=== PATIENT | male | born 1965 | race Caucasian/White ===

== ENCOUNTER 2021-10-28 16:55 | Outpatient (REF) | payer OTHER, SELFPAY ==
[2021-10-28 17:07] LABS: MANUAL DIFF FLAG NO
[2021-10-28 17:44] LABS: Basophils Percent Auto 0.4 % (0-2); Eosinophils Absolute Auto 0.1 X10*3/uL (0.0-0.4); Eosinophils Percent Auto 1.3 % (0-4); Hematocrit 38.9 % (42.0-52.0); Hemoglobin 13.2 g/dl (14.0-18.0); Imm Gran Abs Auto 0.03 X10*3/uL (0.00-0.03); Imm Gran Pct Auto 0.4 % (0.0-0.4); Immature Retic Fraction 8.5 % (2.3-13.4); Lymphocytes Absolute Auto 1.4 X10*3/uL (1.2-4.9); Lymphocytes Percent Auto 18.3 % (20-40); Mean Corpuscular HGB Conc 33.9 g/dl (31.0-36.0); Mean Corpuscular Hemoglobin 30.1 pg (27.0-33.0); Mean Corpuscular Volume 88.6 fL (80.0-98.0); Mean Platelet Volume 8.9 fL (9.4-12.4); Monocytes Absolute Auto 0.6 X10*3/uL (0.1-1.2); Monocytes Percent Auto 8.1 % (2-11); Neutrophils Absolute Auto 5.4 x10*3/uL (2.0-8.3); Neutrophils Percent Auto 71.5 % (45-73); Platelet Count 347 X10*3/uL (160-400); Red Blood Count 4.39 X10*6/uL (4.60-5.80); Red Cell Distribution Width 12.7 % (11.0-16.0); Retic HGB Equivalent 34.4 pg (30.0-35.0); Reticulocyte Percent 1.3 % (0.5-1.8); Reticulocytes Absolute 0.057 X10*6/uL (0.026-0.095); White Blood Count 7.6 X10*3/uL (4.8-10.8)
[2021-10-28 17:47] LABS: Appearance Urine CLEAR; Color Urine YELLOW; Glucose Urine UA NEG (NEG); Leukocyte Esterase Urine NEG (NEG); Nitrite Urine NEG (NEG); PH 5.5 (5.0-8.0); Specific Gravity - Urine >= 1.030 (1.005-1.025); Urine Blood NEG (NEG); Urine Ketones NEG (NEG); Urine Protein TRACE MG/DL (NEG-TRACE)
[2021-10-28 18:16] LABS: Alanine Aminotransferase 41 U/L (0-40); Albumin Level 4.4 g/dL (3.5-5.0); Alkaline Phosphatase 83 U/L (39-117); Anion Gap 12 (12-20); Aspartate Amino Transferase 29 U/L (5-37); Bilirubin Total 0.4 mg/dL (0.0-1.0); Blood Urea Nitrogen 14 mg/dL (9-16); Calcium 9.2 mg/dL (8.4-10.2); Carbon Dioxide 26 mmol/L (22-29); Chloride 106 mmol/L (96-108); Cholesterol 301 mg/dL; Estimated Glomerular Filt Rate > 60; Glucose Random 100 mg/dL (60-115); HDL Cholesterol 50 mg/dL; Iron 95 mcg/dL (45-160); LDL Cholesterol Calculated 211 mg/dl; Percent Iron Saturation 24 % (15-50); Potassium 4.5 mmol/L (3.3-5.1); Sodium 139 mmol/L (135-145); Total Iron Binding Capacity 396 mcg/dL (228-428); Total Protein 7.3 g/dL (6.5-8.0); Triglycerides 201 mg/dL; Unsaturated Iron Binding 301 ug/dL
[2021-10-28 18:24] LABS: Erythrocyte Sedimentation Rate 15 MM/HR (0-15)
[2021-10-28 18:38] LABS: Ferritin 111 ng/mL (20-250); Free T4 (Free Thyroxine) 0.94 ng/dL (0.71-1.85); Prostate Specific Antigen Scr 1.26 ng/mL (<0.05-4.0); Thyroid Stimulating Hormone 0.51 uIU/mL (0.32-4.0); Vitamin D 25-OH Total 31.4 ng/mL (>30)
[2021-10-28 18:51] LABS: Folate > 20.0 ng/mL (> or = 4.0); Vitamin B12 570 pg/mL (200-900)
[2021-10-28 21:17] LABS: Amorphous Sediment Urine 4+ /LPF; RBC Urine 0-2 /HPF (0); Squamous Epithelial Cell Urine TRACE /LPF; WBC Urine 0-2 /HPF (0-4)
== END 2021-10-28 16:56 | disposition home or self-care (01) ==
LOC: HO.LAB 16:55
PROVIDERS: PCP Internal Medicine; Visit Provider Internal Medicine
DX: Z12.5 Encounter for screening for malignant neoplasm of prostate (principal); F33.9 Major depressive disorder, recurrent, unspecified; E78.00 Pure hypercholesterolemia, unspecified
CPT/HCPCS: 36415; 80053; 80061; 81001; 82306; 82607; 82728; 82746; 83540; 84153; 84439; 84443; 85025; 85045; 85652

== ENCOUNTER 2021-12-21 10:10 | Outpatient (REF) | payer OTHER, SELFPAY ==
--- NOTE | ~2021-12-21 | US_ITS ---
EXAMINATION: US ABDOMEN COMPLETE CLINICAL INFORMATION: Elevated liver function tests. COMPARISON: CT abdomen with contrast. TECHNIQUE: Real-time imaging of the abdominal viscera. FINDINGS: PANCREAS: Normal. ABDOMINAL AORTA: The proximal, mid, and distal segments are normal in caliber. INFERIOR VENA CAVA: Not well seen. LIVER: The liver is normal in size. The liver contour is normal. There is diffuse increased liver parenchymal echogenicity, consistent with hepatic steatosis. There is a 0.8 cm hypoechoic lesion in the left lobe. This is not necessarily cystic. There is no intrahepatic biliary duct dilatation seen. GALLBLADDER: Normal. The gallbladder is physiologically distended without evidence of stones, sludge, polyps, wall thickening or pericholecystic fluid. COMMON BILE DUCT: Normal in caliber measuring 0.3 cm in diameter. RIGHT KIDNEY: Normal. No hydronephrosis. No renal calculi or focal parenchymal lesions. The kidney measures 10.9 cm in maximum dimension. LEFT KIDNEY: Normal. No hydronephrosis. No renal calculi or focal parenchymal lesions. The kidney measures 10.3 cm in maximum dimension. SPLEEN: Normal. The spleen measures 10.5 cm in maximum dimension. FREE FLUID: None. US/US abdomen complete IMPRESSION: Hepatic steatosis. 0.8 cm hypoechoic left lobe liver lesion. This does not show characteristics of a cyst. If clinically indicated, nonemergent dynamic liver MRI could be performed to evaluate.
== END 2021-12-21 10:11 | disposition home or self-care (01) ==
LOC: HO.US 10:10
PROVIDERS: Visit Provider Internal Medicine
DX: R10.11 Right upper quadrant pain (principal); R79.89 Other specified abnormal findings of blood chemistry
CPT/HCPCS: 76700

== ENCOUNTER 2022-01-01 20:07 | Emergency (ER) | payer OTHER, SELFPAY ==
[2022-01-01 22:23] VITALS: BP 134/82; PULSE 76; RESP 16; TEMP 37.4; O2SAT 100; BMI 29.5
[2022-01-01 23:43] LABS: Hematocrit 38.6 % (42.0-52.0); Hemoglobin 12.8 g/dl (14.0-18.0); Mean Corpuscular HGB Conc 33.2 g/dl (31.0-36.0); Mean Corpuscular Hemoglobin 29.4 pg (27.0-33.0); Mean Corpuscular Volume 88.7 fL (80.0-98.0); Mean Platelet Volume 8.6 fL (9.4-12.4); Platelet Count 300 X10*3/uL (160-400); Red Blood Count 4.35 X10*6/uL (4.60-5.80); Red Cell Distribution Width 12.6 % (11.0-16.0); White Blood Count 13.3 X10*3/uL (4.8-10.8)
[2022-01-02 00:02] LABS: Alanine Aminotransferase 39 U/L (0-40); Albumin Level 4.5 g/dL (3.5-5.0); Alkaline Phosphatase 100 U/L (39-117); Anion Gap 16 (12-20); Aspartate Amino Transferase 26 U/L (5-37); Bilirubin Total 0.4 mg/dL (0.0-1.0); Blood Urea Nitrogen 13 mg/dL (9-16); Calcium 9.5 mg/dL (8.4-10.2); Carbon Dioxide 27 mmol/L (22-29); Chloride 102 mmol/L (96-108); Creatinine Clr Calc Pharmacy 99.5; Estimated Glomerular Filt Rate > 60; Glucose Random 96 mg/dL (60-115); Sodium 140 mmol/L (135-145); Total Protein 7.4 g/dL (6.5-8.0)
--- NOTE | 2022-01-02 01:37 | ED_ITS ---
HPI - General Adult General Chief complaint: General Medical Stated complaint: cyst Time Seen by Provider: 01/02/22 01:31 Source: patient Mode of arrival: ambulatory Limitations: no limitations History of Present Illness HPI narrative: Patient comes to the emergency room complaining of an abscess on the left buttoc ks. Patient states it started approximately 1 week ago. Patient tried using warm compresses, there has not been any drainage, the abscess keeps getting bigger, more painful. Patient denies fever or chills. Patient denies any pain with bowel movements Related Data Home Medications Medication Instructions Recorded Confirmed ascorbate calcium (vitamin C) 500 500 mg PO DAILY 10/27/21 10/27/21 mg tablet fluoxetine 60 mg tablet 60 mg PO DAILY 10/27/21 10/27/21 magnesium 250 mg tablet 250 mg PO DAILY 10/27/21 10/27/21 multivitamin 1 tab PO DAILY 10/27/21 10/27/21 vitamin B complex (B 1 tab PO DAILY 10/27/21 10/27/21 Complex-Vitamin B12 tablet) Previous Rx's Medication Instructions Recorded ibuprofen 600 mg tablet 600 mg PO TID PRN pain #20 tabs 01/02/22 sulfamethoxazole 800 1 tab PO BID #14 tabs 01/02/22 mg-trimethoprim 160 mg tablet (Bactrim DS) Allergies Allergy/AdvReac Type Severity Reaction Status Date / Time No Known Allergies Allergy Mild NKA Verified 10/27/21 16:12 Review of Systems Review of Systems: Constitutional : No Weight loss, No Fever, No Chills, No Night Sweats, No Fatigue, No Malaise ENT/Mouth : No Hearing loss, No Ear Pain, No Nasal Congestion, No Sinus Pain, No Hoarseness, No sore throat, No Rhinorrhea, No Swallowing Difficulty Eyes: No Eye Pain, No Swelling, No Redness, No Foreign Body, No Discharge, No Vision Changes Cardiovascular : No Chest Pain, No SOB, No Dyspnea on Exertion, No Orthopnea, No Edema, No Palpitations Respiratory : No Cough, No Sputum, No Wheezing, No Smoke Exposure, No Dyspnea Gastrointestinal : No Nausea, No Vomiting, No Diarrhea, No Constipation, No abdominal Pain, No Hematochezia, No Melena Genitourinary : no irregular bleeding, No Dysuria, No Urinary Frequency, No Hematuria, No Urinary Incontinence, No Urgency, No Flank Pain, No Urinary Flow Changes, No Hesitancy Musculoskeletal : No joint pain, No Myalgias, No Joint Swelling Skin : Complaining of an abscess in the left buttocks Neuro : No Weakness, No Numbness, No Paresthesias, No Loss of Consciousness, No Dizziness, No Headache Psych : No Anxiety/Panic, No Depression, No SI/HI/AH/VH, No Social Issues, Heme/Lymph: No Bruising, No Bleeding,No Lymphadenopathy Endocrine : No Polyuria, No Polydipsia, No Temperature Intolerance COUNT INCLUDES THE [facility] Past Medical History Medical History Alcohol abuse Hypercholesterolemia Obsessive compulsive disorder Psoriasis Recurrent major depression Family History Family History (Updated 10/27/21 @ 16:59 by Patsy Ward MD) Mother Renal cancer Brother Testicular cancer Paternal Grandmother Pancreatic cancer Maternal Grandmother Breast cancer Paternal Aunt Paranoid schizophrenia Social History Social History (Updated 10/27/21 @ 17:00 by Patsy Ward MD) Housing: House Alcohol intake: current Patient Tobacco Use Status: Former Tobacco user Years Smoked: quit 2013 Second Hand Smoke Exposure: No Advance Directives: No Advance Directives Information Provided: Yes service: No Current occupational status: unemployed Cognitive needs: No Hearing needs: No Vision needs: Yes Physical Exam ED Vital Signs: Vital Signs - 24 hr 01/01/22 22:23 Temperature 99.3 F Pulse Rate 76 Respiratory Rate 16 Blood Pressure 134/82 Pulse Oximetry 100 Oxygen Delivery Method Room Air BMI result Body Mass Index 29.5 Const Other: Appearance: Alert. Oriented X3. No acute distress. Eyes: Pupils equal, round and reactive to light. ENT: Pharynx normal. Neck: Normal inspection. Neck supple. No lymph nodes noted. No crepitus CVS: Normal heart rate and rhythm. Pulses normal. Normal S1 and S2 Respiratory: No respiratory distress. Breath sounds normal. No Wheezing. No rales Abdomen: Soft and nontender. No rigidity. No distention. Skin: Skin warm and dry on the left buttocks, there is a 3 cm x 3 cm abscess. It is approximately 2 in away from the anus. Perirectal abscess not suspect Extremities: No lower extremity edema. No Lacerations. No Rash Neuro: Oriented X 3. No motor deficit. No sensory deficit. Moving all extremities. No slurred speech. CN 2 through 12 grossly intact Psych: calm, cooperative, normal affect Course Course Course Narrative: Left buttocks abscess was drained, small amount of pus was extracted, approx imately 4 mL Patient given the 1st dose of Bactrim in the ED Patient instructed to follow-up with his primary care physician or return in 24- 48 hours for wound check Procedures Abscess I/D Site: other (Left buttocks) Side (if applicable): left Local Anesthetic: lidocaine 1% Amount of anesthesia used (mL): 4 Technique: incised with blade Amount of fluid expressed (mL): 4 Sent for culture/gram staining?: No Irrigation: No Packing used?: iodoform Medical Decision Making Lab Data Result diagrams: 01/01/22 23:34 01/01/22 23:34 Labs: Lab Results 01/01/22 01/01/22 Range/Units 23:34 23:34 WBC 13.3 H (4.8-10.8) X10*3/uL RBC 4.35 L (4.60-5.80) X10*6/uL Hgb 12.8 L (14.0-18.0) g/dl Hct 38.6 L (42.0-52.0) % MCV 88.7 (80.0-98.0) fL MCH 29.4 (27.0-33.0) pg MCHC 33.2 (31.0-36.0) g/dl RDW 12.6 (11.0-16.0) % Plt Count 300 (160-400) X10*3/uL MPV 8.6 L (9.4-12.4) fL Absolute Nucleated RBC 0.000 (0.0-0.012) X10*3/uL Nucleated RBC % (auto) 0.0 (0.0-0.2) /100WBC Sodium 140 (135-145) mmol/L Potassium 5.0 (3.3-5.1) mmol/L Chloride 102 (96-108) mmol/L Carbon Dioxide 27 (22-29) mmol/L Anion Gap 16 (12-20) BUN 13 (9-16) mg/dL Creatinine 0.90 (0.5-1.4) mg/dL Estim Creat Clear Calc 99.5 Estimated GFR > 60 Random Glucose 96 (60-115) mg/dL Calcium 9.5 (8.4-10.2) mg/dL Total Bilirubin 0.4 (0.0-1.0) mg/dL AST 26 (5-37) U/L ALT 39 (0-40) U/L Alkaline Phosphatase 100 D (39-117) U/L Total Protein 7.4 (6.5-8.0) g/dL Albumin 4.5 (3.5-5.0) g/dL Discharge Plan Discharge Clinical Impression: Abscess of buttock, left Patient Disposition: Home, Self-Care Instructions: Abscess (ED), Acute Wounds (ED) Additional Instructions: You need to return in 24-48 hours for a wound check. You may come back to the emergency room or this can be done at your primary care physician's office as well. Please follow-up with your primary care physician tomorrow. If you have any worsening or new symptoms, please return to the emergency room or call 911 Prescriptions: New sulfamethoxazole-trimethoprim [Bactrim DS] 800-160 mg tablet 1 tab PO BID Qty: 14 0RF ibuprofen 600 mg tablet 600 mg PO TID PRN (Reason: pain) Qty: 20 0RF No Action fluoxetine 60 mg tablet 60 mg PO DAILY vitamin B complex [B Complex-Vitamin B12] Tablet 1 tab PO DAILY multivitamin Tablet 1 tab PO DAILY ascorbate calcium (vitamin C) 500 mg tablet 500 mg PO DAILY magnesium 250 mg tablet 250 mg PO DAILY
[2022-01-02 02:00] VITALS: BP 150/90; PULSE 68; RESP 16; O2SAT 99
[2022-01-02] MEDS: Sulfamethox/Trimeth 800/160 TABLET 1 TAB PO (02:28)
== END 2022-01-02 02:36 | disposition home or self-care (01) ==
PROVIDERS: Emergency Provider Emergency Medicine; PCP Internal Medicine
DX: L02.31 Cutaneous abscess of buttock (principal)
CPT/HCPCS: 10060; 36415; 80053; 85027; 99283

== ENCOUNTER 2022-01-03 02:12 | Emergency (ER) | payer OTHER, SELFPAY ==
[2022-01-03 02:31] VITALS: BP 147/78; PULSE 75; RESP 20; TEMP 37.4; O2SAT 97; BMI 28.7
[2022-01-03 05:27] VITALS: BP 148/84; PULSE 62; RESP 16; TEMP 37.2; O2SAT 98
--- NOTE | 2022-01-03 05:37 | ED_ITS ---
HPI - General Adult General Chief complaint: General Medical Stated complaint: Wound check Time Seen by Provider: 01/03/22 05:37 Source: patient Mode of arrival: ambulatory Limitations: no limitations History of Present Illness HPI narrative: over 24 hours ago patient had packing placed in an abscess, left buttock Onset (ago): day(s) Severity: moderate Associated symptoms: denies other symptoms Related Data Home Medications Medication Instructions Recorded Confirmed ascorbate calcium (vitamin C) 500 500 mg PO DAILY 10/27/21 10/27/21 mg tablet fluoxetine 60 mg tablet 60 mg PO DAILY 10/27/21 10/27/21 magnesium 250 mg tablet 250 mg PO DAILY 10/27/21 10/27/21 multivitamin 1 tab PO DAILY 10/27/21 10/27/21 vitamin B complex (B 1 tab PO DAILY 10/27/21 10/27/21 Complex-Vitamin B12 tablet) Previous Rx's Medication Instructions Recorded ibuprofen 600 mg tablet 600 mg PO TID PRN pain #20 tabs 01/02/22 sulfamethoxazole 800 1 tab PO BID #14 tabs 01/02/22 mg-trimethoprim 160 mg tablet (Bactrim DS) Allergies Allergy/AdvReac Type Severity Reaction Status Date / Time No Known Allergies Allergy Mild NKA Verified 01/03/22 02:30 Review of Systems Constitutional: Constitutional: Reports no additional constitutional complaints Eyes: Eyes: Reports no additional eye complaints ENT: Denies dizziness Cardiovascular: Cardiovascular: Reports no additional cardiovascular complaints Respiratory: Respiratory: Reports as per HPI Gastrointestinal: Gastrointestinal: Reports no additional gastrointestinal complaints Musculoskeletal: Musculoskeletal: Reports no additional musculoskeletal comp laints Integumentary/Breasts: Skin/Breast: Denies rash Neurologic: Reports system reviewed and no additional complaints, except as documented, Denies dizziness and Denies Sensory deficit (Neuro) Psychiatric: Psychiatric: Denies anxiety PMFSH Past Medical History Medical History Alcohol abuse Hypercholesterolemia Obsessive compulsive disorder Psoriasis Recurrent major depression Family History Family History Mother Renal cancer Brother Testicular cancer Paternal Grandmother Pancreatic cancer Maternal Grandmother Breast cancer Paternal Aunt Paranoid schizophrenia Social History Social History Housing: House Alcohol intake: current Patient Tobacco Use Status: Former Tobacco user Years Smoked: quit 2013 Second Hand Smoke Exposure: No Advance Directives: No service: No Current occupational status: unemployed Cognitive needs: No Hearing needs: No Vision needs: Yes Physical Exam ED Vital Signs: Vital Signs - 24 hr 01/03/22 02:31 01/03/22 05:27 Temperature 99.4 F 98.9 F Pulse Rate 75 62 Respiratory Rate 20 16 Blood Pressure 147/78 H 148/84 H Pulse Oximetry 97 98 Oxygen Delivery Method Room Air Room Air BMI result Body Mass Index 28.7 Const General: healthy appearing Nutritional Appearance: average body habitus Orientation/consciousness: oriented to person and patient oriented x3 Limitations: no limitations HENMT Head: Yes normal to inspection Ears: external ears normal General nose exam: Normal external nose present Mouth: Normal oral and palatal mucosa present and oropharynx normal Throat: Yes posterior oropharynx normal Eyes General: appearance normal, both eyes and all related structures Neck Neck: Yes normal visual inspection Chest Chest palpation & inspection: normal inspection of the chest Resp Auscultation: clear to auscultation bilaterally Cardio Jugular venous distension: no JVD Rate: regular rate Rhythm: regular rhythm Heart sounds: S1 normal heart sound present and S2 normal heart sound present GI Inspection: Yes normal to inspection Palpation (GI): Soft to palpation, nontender and No hepatosplenomegaly present Auscultation: normal bowel sounds Other: left Buttock with abscess and packing Skin General skin exam: no rashes or lesions noted Neuro General: oriented to person and patient oriented x3 Cranial nerves: Yes CN's II-XII intact bilaterally Motor exam (neuro): 5/5 motor strength present throughout Sensory Exam: No Sensory deficit (Neuro) Extrem General: Yes normal to inspection Psych Appearance: grossly normal Course Reevaluation(s) Reevaluation #1: packing removed and packing replaced bandage applied Time: 05:45 Procedures Procedure Narrative Procedure Narrative: packing replaced in left buttock abscess Discharge Plan Discharge Clinical Impression: Abscess Patient Disposition: Home, Self-Care Additional Instructions: packing removal in shower in 48 hours Prescriptions: No Action sulfamethoxazole-trimethoprim [Bactrim DS] 800-160 mg tablet 1 tab PO BID Qty: 14 0RF ibuprofen 600 mg tablet 600 mg PO TID PRN (Reason: pain) Qty: 20 0RF fluoxetine 60 mg tablet 60 mg PO DAILY vitamin B complex [B Complex-Vitamin B12] Tablet 1 tab PO DAILY multivitamin Tablet 1 tab PO DAILY ascorbate calcium (vitamin C) 500 mg tablet 500 mg PO DAILY magnesium 250 mg tablet 250 mg PO DAILY Referrals: Po,Patsy Mackey MD [Primary Care Provider] - 1 week
== END 2022-01-03 05:53 | disposition home or self-care (01) ==
PROVIDERS: Emergency Provider Emergency Medicine; PCP Internal Medicine
DX: Z48.00 Encounter for change or removal of nonsurgical wound dressing (principal); L02.31 Cutaneous abscess of buttock
CPT/HCPCS: 99283

== ENCOUNTER 2022-02-09 15:45 | Outpatient (REF) | payer OTHER, SELFPAY ==
--- NOTE | ~2022-02-09 | MR_ITS ---
EXAMINATION: MR ABDOMEN WITHOUT AND WITH CONTRAST CLINICAL INFORMATION: Liver disease COMPARISON: Previous abdominal ultrasound November [address] of the abdomen and pelvis August 2007 TECHNIQUE: MR abdomen was performed without and with use of 9 mL intravenous Gadavist gadolinium contrast. Postcontrast images are performed in multiphase dynamic sequences. Imaging was performed in 3 planes. FINDINGS: LUNG BASES: The visualized lung bases are unremarkable. LIVER, GALLBLADDER, AND BILIARY TREE: The liver is upper normal in size and normal in contour. There is fatty infiltration of the liver. There is a small 4 x 6 mm area of early arterial phase enhancement in the peripheral lateral segment of the left lobe of the liver for example axial image 38 series 100 postcontrast. This remains enhanced with respect to the liver on all later sequences, for example coronal image 6 series 10. This does not demonstrate washout or pseudocapsule formation. This is not appreciated on sequences without IV contrast. No other focal liver lesion. Normal gallbladder. No biliary duct dilatation. PANCREAS: Unremarkable. SPLEEN: Normal. ADRENAL GLANDS: Normal. KIDNEYS AND URETERS: The kidneys are normal in size, shape, and enhance symmetrically. There is a 1 x 2 cm cyst in the upper pole right kidney. No hydronephrosis. No perinephric stranding. GASTROINTESTINAL TRACT: No bowel obstruction. No ascites or fluid collection. ABDOMINAL WALL: No significant hernia is appreciated. LYMPH NODES: No lymphadenopathy. VASCULAR: Unremarkable. OSSEOUS STRUCTURES: Marrow signal normal. MR/MR abdomen wo/w con IMPRESSION: Question 4 x 6 mm lesion in the peripheral lateral segment of the left lobe of the liver corresponding to ultrasound finding. This is appreciated on postcontrast sequences only. This demonstrates early arterial phase enhancement and remains enhanced with respect to the liver following blood pool signal on later images. This does not demonstrate enhancement characteristics to suggest hepatocellular carcinoma. Short-term follow-up imaging in 6 months recommended. Fatty infiltration of the liver.
== END 2022-02-09 15:46 | disposition home or self-care (01) ==
LOC: HO.MRI 15:45
PROVIDERS: Visit Provider Internal Medicine
DX: K76.9 Liver disease, unspecified (principal)
CPT/HCPCS: 74183; A9585

== ENCOUNTER 2022-04-04 09:31 | Outpatient (REF) | payer OTHER, SELFPAY ==
[2022-04-04 09:49] LABS: MANUAL DIFF FLAG NO
[2022-04-04 10:28] LABS: Basophils Percent Auto 0.5 % (0-2); Eosinophils Absolute Auto 0.2 X10*3/uL (0.0-0.4); Eosinophils Percent Auto 2.4 % (0-4); Hematocrit 41.2 % (42.0-52.0); Hemoglobin 13.3 g/dl (14.0-18.0); Imm Gran Abs Auto 0.03 X10*3/uL (0.00-0.03); Imm Gran Pct Auto 0.4 % (0.0-0.4); Immature Retic Fraction 10.3 % (2.3-13.4); Lymphocytes Absolute Auto 2.1 X10*3/uL (1.2-4.9); Lymphocytes Percent Auto 28.1 % (20-40); Mean Corpuscular HGB Conc 32.3 g/dl (31.0-36.0); Mean Corpuscular Hemoglobin 29.2 pg (27.0-33.0); Mean Corpuscular Volume 90.4 fL (80.0-98.0); Monocytes Absolute Auto 0.7 X10*3/uL (0.1-1.2); Neutrophils Absolute Auto 4.5 x10*3/uL (2.0-8.3); Neutrophils Percent Auto 59.6 % (45-73); Platelet Count 345 X10*3/uL (160-400); Red Blood Count 4.56 X10*6/uL (4.60-5.80); Reticulocyte Percent 1.3 % (0.5-1.8); Reticulocytes Absolute 0.058 X10*6/uL (0.026-0.095); White Blood Count 7.5 X10*3/uL (4.8-10.8)
[2022-04-04 10:40] LABS: Estimated Average Glucose 108 mg/dL; Hemoglobin A1c % 5.4 %
[2022-04-04 11:23] LABS: Alanine Aminotransferase 54 U/L (0-40); Albumin Level 4.5 g/dL (3.5-5.0); Alkaline Phosphatase 114 U/L (39-117); Aspartate Amino Transferase 40 U/L (5-37); Bilirubin Direct < 0.2 mg/dL (0.0-0.5); Bilirubin Total 0.3 mg/dL (0.0-1.0); Total Protein 7.3 g/dL (6.5-8.0)
[2022-04-04 11:29] LABS: Alanine Aminotransferase 54 U/L (0-40); Albumin Level 4.6 g/dL (3.5-5.0); Alkaline Phosphatase 115 U/L (39-117); Anion Gap 14 (12-20); Aspartate Amino Transferase 41 U/L (5-37); Bilirubin Total 0.3 mg/dL (0.0-1.0); Blood Urea Nitrogen 17 mg/dL (9-16); Calcium 9.6 mg/dL (8.4-10.2); Carbon Dioxide 27 mmol/L (22-29); Chloride 105 mmol/L (96-108); Cholesterol 274 mg/dL; Estimated Glomerular Filt Rate > 60; Ferritin 128 ng/mL (20-250); Glucose Random 94 mg/dL (60-115); HDL Cholesterol 51 mg/dL; Iron 70 mcg/dL (45-160); LDL Cholesterol Calculated 195 mg/dl; Percent Iron Saturation 20 % (15-50); Potassium 4.8 mmol/L (3.3-5.1); Sodium 141 mmol/L (135-145); Total Iron Binding Capacity 355 mcg/dL (228-428); Total Protein 7.3 g/dL (6.5-8.0); Triglycerides 142 mg/dL; Unsaturated Iron Binding 285 ug/dL
[2022-04-04 11:30] LABS: Folate 19.8 ng/mL (> or = 4.0); Vitamin B12 599 pg/mL (200-900)
[2022-04-07 12:49] LABS: Anti Nuclear Antibody Screen NEGATIVE (NEGATIVE)
[2022-04-10 16:38] LABS: Smooth Muscle Antibody <20 U (<20)
[2022-04-11 08:03] LABS: Alpha 1 Anti-trypsin 147 mg/dL (83-199); Alpha Fetoprotein 3.9 ng/mL (<6.1); FIB-ALT 48 U/L (9-46); FIB-Alpha-2-Macroglobulin 132 mg/dL (106-279); FIB-Apolipoprotein A1 169 mg/dL (94-176); FIB-GGT 104 U/L (3-85); FIB-Haptoglobin 202 mg/dL (43-212); FIB-Total Bilirubin 0.3 mg/dL (0.2-1.2); Liver Fibrosis Stage F0; Nec Inflam Act Grade A0-A1; Nec Inflam Act Score 0.22
[2022-04-13 11:44] LABS: Mitochondrial Antibodies NEGATIVE (NEGATIVE)
== END 2022-04-04 09:32 | disposition home or self-care (01) ==
LOC: HO.LAB 09:31
PROVIDERS: Absent Provider Internal Medicine; PCP Internal Medicine; Visit Provider Internal Medicine
DX: R73.01 Impaired fasting glucose (principal); E78.00 Pure hypercholesterolemia, unspecified; K76.0 Fatty (change of) liver, not elsewhere classified; K76.9 Liver disease, unspecified
CPT/HCPCS: 36415; 80053; 80061; 80076; 81596; 82103; 82105; 82248; 82378; 82607; 82728; 82746; 83036; 83540; 85025; 85045; 86015; 86038; 86039; 86255; 86256

== ENCOUNTER 2022-05-31 05:48 | Day surgery (SDC) | payer OTHER, SELFPAY ==
[2022-05-31 06:14] VITALS: BMI 28.7
[2022-05-31 06:22] VITALS: BP 135/82; PULSE 77; RESP 18; TEMP 36.9; O2SAT 98
[2022-05-31] MEDS: Lactated Ringers 1,000 ML 50 ML IVCONT (06:41)
--- NOTE | 2022-05-31 07:27 | HO.ANESPROP2 ---
HPI - Anesthesia Eval Consult details Narrative: colonoscopy PMFSH Active Problems Active Problems: All Active Problems (Updated 02/15/22 @ 16:13 by Patsy Ward MD) Abscess, gluteal, left (Acute) Annual physical exam (Acute) Obsessive compulsive disorder (Acute) Alcohol abuse (Acute) Recurrent major depression (Acute) Psoriasis (Acute) Hypercholesterolemia (Acute) Liver lesion (Acute) Fatty liver (Acute) Impaired fasting glucose (Acute) RUQ abdominal pain (Acute) Colon cancer screening (Acute) Overweight (BMI 25.0-29.9) (Acute) Past Medical History Medical History Alcohol abuse Hypercholesterolemia Obsessive compulsive disorder Psoriasis Recurrent major depression Family History Family History Mother Renal cancer Brother Testicular cancer Paternal Grandmother Pancreatic cancer Maternal Grandmother Breast cancer Paternal Aunt Paranoid schizophrenia Family history of problems with anesthesia: No Surgical History History of Problems with Anesthesia: No Social History Social History (Updated 02/03/22 @ 11:17 by Patsy Ward MD) Housing: House Alcohol intake: current Alcohol intake frequency: holidays/special occasions only Patient Tobacco Use Status: Former Tobacco user Years Smoked: quit 2013 e-Cigarette/Vaping Use: Never Used Second Hand Smoke Exposure: No Are you DNR?: No Advance Directives: No Advance Directives Information Provided: Yes Recently lost weight without trying: No Nutrition Risks: No Nutritional Risk service: No Current occupational status: unemployed Cognitive needs: No Hearing needs: No Vision needs: Yes Meds Allergies Allergy/AdvReac Type Severity Reaction Status Date / Time No Known Allergies Allergy Mild NKA Verified 05/01/22 11:06 Active Medications: Current Medications Lactated Ringer's (Lr) 1,000 mls @ 50 mls/hr IVCONT .Q20H ROSA Last Admin: 05/31/22 06:41 Dose: 50 mls/hr Sodium Biphosphate/Sodium Phosphate (Sodium Phosphate,[place]-Dibasic 133 Ml Enema) 133 ml VA ONCE PRN PRN Reason: Poor Colonoscopy Prep Results Home Medications Medication Instructions Recorded Confirmed Last Taken Type ascorbate calcium (vitamin C) 500 500 mg PO DAILY 10/27/21 05/31/22 05/29/22 History mg tablet fluoxetine 60 mg tablet 60 mg PO DAILY 10/27/21 05/31/22 05/29/22 History magnesium 250 mg tablet 250 mg PO DAILY 10/27/21 05/31/22 05/29/22 History multivitamin 1 tab PO DAILY 10/27/21 05/31/22 05/29/22 History cholecalciferol (vitamin D3) 25 25 mcg PO DAILY 02/03/22 05/31/22 05/29/22 History mcg (1,000 unit) capsule Exam Exam Date and Time: May 31, 2022726 Height,Weight and Vital Signs: Height 5 ft 8.5 in Weight 90.718 kg Last Vital Signs Temp 98.5 F 05/31/22 06:22 Pulse 77 05/31/22 06:22 Resp 18 05/31/22 06:22 BP 135/82 05/31/22 06:22 Pulse Ox 98 05/31/22 06:22 O2 Del Method 05/31/22 06:22 Airway Mallampati Class: III TM Dist: >3cm Neck ROM: Full Heart: ok Lungs: ok Assessment and Plan Assessment Anesthesia Assessment: Anesthesia Plan Discussed and Chart Reviewed Final Anesthetic Review Family History of Problems with Anesthesia: No History of Problems with Anesthesia: No NPO: Yes ASA Class: II Final Preanesthetic Review: No Changes in Pt Med Stat, Meds/Allgs Chart Reviewed, Consent Obtained/Reviewed and Anes Risks/Benef Reviewed Patient Risk: Low Procedure Risk: Low Anesthetic Plan Anesthetic Plan: MAC: and Agree w/ Assess. and Plan Disposition: Standard PACU
[2022-05-31 08:25] VITALS: BP 85/49; PULSE 74; RESP 18; TEMP 36.1; O2SAT 95
--- NOTE | 2022-05-31 08:25 | PM.OP ---
Brief Operative Note Date of Service: 05/31/22 Pre-op diagnosis: Screening Post-op diagnosis: other (Colon polyp) Procedure: Colonoscopy to the cecum and TI with biopsy and removal of a polyp Surgeon: Sinan Mccullough Anesthesia: MAC Was an Tomography Technologist used for this Procedure?: No Estimated blood loss (mL): 2.0 Pathology: other (A. Polyp at 20cm) Condition: stable Disposition: PACU
[2022-05-31 08:40] VITALS: BP 115/69; PULSE 60; RESP 18; TEMP 36.1; O2SAT 98
--- NOTE | 2022-05-31 11:04 | OP_ITS ---
SURGEON: Sinan Mccullough MD INDICATIONS: Patient presents for evaluation of colorectal cancer screening. Full consent has been obtained from him for this, including risks of bleeding and perforation. PREOPERATIVE DIAGNOSIS: Colorectal cancer screening. POSTOPERATIVE DIAGNOSIS: PROCEDURE PERFORMED: Colonoscopy to the cecum and terminal ileum with biopsy and removal of polyp. ESTIMATED BLOOD LOSS: COMPLICATIONS: ANESTHESIA: Medication used, monitored anesthesia care. ASSISTANTS: SPECIMENS: POSTOPERATIVE DIAGNOSES: Colorectal cancer screening, small colon polyp, mild diverticulosis, and small internal hemorrhoids. DESCRIPTION OF PROCEDURE: The patient was placed in the left lateral decubitus position. The digital rectal exam revealed no abnormalities. The Olympus video pediatric colonoscope was entered into the rectum and advanced easily to the cecum. Once in the cecum, I did identify normal-appearing cecal pouch with appendiceal orifice and normal-appearing ileocecal valve. The terminal ileum was cannulated and appeared normal. Scope was withdrawn back into the colon. The entire cecum and ileocecal valve appeared normal. Scope was slowly withdrawn assessing all mucosal surfaces carefully. Preparation was excellent. At 20 cm, there was approximately 3 mm polyp, which was biopsied and completely removed with cold biopsy forceps. I did not visualize any other polyps, colitis, or angiodysplasias. There was a mild amount of sigmoid diverticulosis. In the rectum, the scope was retroflexed visualizing small internal hemorrhoids, but no other pathology. The rectal mucosa appeared normal. Scope was straightened out and withdrawn from the patient. He tolerated the procedure well and was returned to the recovery area in stable condition. IMPRESSION: 1. Small colon polyp. 2. Mild diverticulosis. 3. Small internal hemorrhoids. PLAN: The results of the Pathology will be checked. If this is a tubular adenoma, I would recommend a followup colonoscopy in 5 years. If it is only hyperplastic, I would recommend a followup colonoscopy in 10 years. He was advised to see me again in the Spring for a followup visit and at that time we could repeat a MRI of the liver given a questionable small lesion that had been seen on a previous study for which the radiologist recommended a followup exam. The remainder of his liver workup had been negative in regard to autoimmune studies and iron studies. His alpha-fetoprotein level had been normal. MD ALEJANDRO Skaggs/MARCIN / [id number] KEVIN
== END 2022-05-31 09:11 | disposition home or self-care (01) ==
PROVIDERS: PCP Internal Medicine; Visit Provider Internal Medicine
PROC: 0DJD8ZZ Inspection of Lower Intestinal Tract, Via Natural or Artificial Opening Endoscopic (ICD-10-PCS; CPT 45378; principal; 2022-05-31 07:30)
DX: Z12.11 Encounter for screening for malignant neoplasm of colon (principal); K63.5 Polyp of colon; K57.30 Diverticulosis of large intestine without perforation or abscess without bleeding; K64.8 Other hemorrhoids; K76.0 Fatty (change of) liver, not elsewhere classified; F32.9 Major depressive disorder, single episode, unspecified; F42.9 Obsessive-compulsive disorder, unspecified; Z79.899 Other long term (current) drug therapy; Z87.891 Personal history of nicotine dependence
CPT/HCPCS: 45380; 88305

== ENCOUNTER 2022-08-11 22:54 | Emergency (ER) | payer OTHER, SELFPAY ==
[2022-08-11 23:32] VITALS: BP 142/84; PULSE 95; RESP 16; TEMP 36.6; O2SAT 96; BMI 28.8
[2022-08-12 00:26] VITALS: BP 145/86; PULSE 87; RESP 17; TEMP 36.5; O2SAT 95
--- NOTE | 2022-08-12 00:33 | PC.NURSE ---
this rn assumed care of pt @ 0023. pt resting comfortably on stretcher. pt provided with call serrano. denies new needs at this time . awaiting to be seen by ed provider
--- NOTE | 2022-08-12 00:58 | ED.EYEPROB ---
HPI - Eye Problem General Chief complaint: Eye Problems Stated complaint: eye injury, popped blood vessel? Time Seen by Provider: 08/12/22 00:46 Source: patient Mode of arrival: ambulatory Limitations: no limitations History of Present Illness HPI Narrative: Patient came as he hit his right eye with frame complaining of hemorrhage around the cornea. Patient vision intact visual palafox are intact Related Data Home Medications Medication Instructions Recorded Confirmed ascorbate calcium (vitamin C) 500 500 mg PO DAILY 10/27/21 05/31/22 mg tablet fluoxetine 60 mg tablet 60 mg PO DAILY 10/27/21 05/31/22 magnesium 250 mg tablet 250 mg PO DAILY 10/27/21 05/31/22 multivitamin 1 tab PO DAILY 10/27/21 05/31/22 cholecalciferol (vitamin D3) 25 25 mcg PO DAILY 02/03/22 05/31/22 mcg (1,000 unit) capsule Allergies Allergy/AdvReac Type Severity Reaction Status Date / Time No Known Allergies Allergy Mild NKA Verified 08/11/22 23:41 Review of Systems Review of Systems: Yes all other systems are reviewed and are negative [facility] Past Medical History Medical History Alcohol abuse Hypercholesterolemia Obsessive compulsive disorder Psoriasis Recurrent major depression Family History Family History Mother Renal cancer Brother Testicular cancer Paternal Grandmother Pancreatic cancer Maternal Grandmother Breast cancer Paternal Aunt Paranoid schizophrenia Social History Social History Housing: House Alcohol intake: current Alcohol intake frequency: holidays/special occasions only Patient Tobacco Use Status: Former Tobacco user Years Smoked: quit 2014 Smoked in Last 30 Days: No e-Cigarette/Vaping Use: Never Used Second Hand Smoke Exposure: No Use of substances other than those prescribed or required for medical reasons: No Advance Directives: No Advance Directives Information Provided: Yes service: No Current occupational status: unemployed Cognitive needs: No Hearing needs: No Vision needs: Yes Physical Exam Vital Signs: Vital Signs: Last Vital Signs Temp 97.7 F 08/12/22 00:26 Pulse 87 08/12/22 00:26 Resp 17 08/12/22 00:26 BP 145/86 H 08/12/22 00:26 Pulse Ox 95 08/12/22 00:26 O2 Del Method Room Air 08/12/22 00:26 BMI result Body Mass Index 28.8 Const: Orientation/consciousness: patient oriented x3 Eyes: Eyes/upper lids images: 1. Subclinical hemorrhage globe intact anterior chamber intact fundus normal vision is also no Neuro: General: patient oriented x3 and no focal motor deficits Medical Decision Making Medical Decision Making MDM Narrative: Patient with traumatic subconjunctival hemorrhage without involvement the cornea or anterior chamber discharge patient home with supportive treatment Discharge Plan Discharge Clinical Impression: Subconjunctival hemorrhage Patient Disposition: Home, Self-Care Instructions: Subconjunctival Hemorrhage (ED) Additional Instructions: Do not rub your right eye Tear drops as advised It should heal in next 2-3 weeks Prescriptions: No Action fluoxetine 60 mg tablet 60 mg PO DAILY multivitamin Tablet 1 tab PO DAILY ascorbate calcium (vitamin C) 500 mg tablet 500 mg PO DAILY magnesium 250 mg tablet 250 mg PO DAILY cholecalciferol (vitamin D3) 25 mcg (1,000 unit) capsule 25 mcg PO DAILY
--- NOTE | 2022-08-12 01:12 | PC.NURSE ---
pt ambulatory at discharge. skin pwd. pt provided with discharge packet. pt verbalized understanding of discharge packet.
== END 2022-08-12 01:14 | disposition home or self-care (01) ==
PROVIDERS: Emergency Provider Internal Medicine; PCP Internal Medicine
DX: H11.31 Conjunctival hemorrhage, right eye (principal); Z79.899 Other long term (current) drug therapy
CPT/HCPCS: 99282; 99284

== ENCOUNTER 2022-09-28 09:08 | Outpatient (REF) | payer OTHER, SELFPAY ==
--- NOTE | ~2022-09-28 | US_ITS ---
EXAMINATION: US ABDOMEN COMPLETE CLINICAL INFORMATION: Other specified abnormal findings of blood chemistry. COMPARISON: MRI abdomen 02/09/2022. Ultrasound abdomen complete 12/21/2021. CT abdomen and pelvis 08/28/2007. TECHNIQUE: Real-time imaging of the abdominal viscera. FINDINGS: PANCREAS: The visualized portions of the pancreas are unremarkable but a large portion of the gland is obscured by bowel gas. ABDOMINAL AORTA: Limited visualization of the aorta but no aneurysm is seen. INFERIOR VENA CAVA: Visualized portions are normal. LIVER: The liver is enlarged. The liver contour is normal. There is diffuse increased liver parenchymal echogenicity, consistent with hepatic steatosis. Focal fatty sparing is present adjacent to the gallbladder A 1.1 cm hypoechoic lesion in the left lobe of the liver. At the time of the prior MRI on 02/09/2022, this measured 0.6 cm in size in its largest dimension. There is no intrahepatic biliary duct dilatation seen. GALLBLADDER: The gallbladder is mildly contracted without evidence of stones, sludge, polyps, or pericholecystic fluid. COMMON BILE DUCT: Normal in caliber measuring 0.3 cm in diameter. RIGHT KIDNEY: Normal. No hydronephrosis. No renal calculi or focal parenchymal lesions. The kidney measures 11.8 cm in maximum dimension. LEFT KIDNEY: Normal. No hydronephrosis. No renal calculi or focal parenchymal lesions. The kidney measures 11.6 cm in maximum dimension. SPLEEN: Normal. The spleen measures 9.7 cm in maximum dimension. FREE FLUID: None. US/US abdomen complete IMPRESSION: 1. Enlarged fatty liver. 2. The liver mass in the left lobe of the liver has increased in size from 0.6 cm to 1.1 cm. If this is not biopsied, consider repeat hepatic MRI or a tagged red blood cell scan with SPECT.
[2022-09-28 10:12] LABS: Estimated Average Glucose 105 mg/dL; Hemoglobin A1c % 5.3 %
[2022-09-28 10:27] LABS: Alanine Aminotransferase 33 U/L (0-40); Albumin Level 4.2 g/dL (3.5-5.0); Alkaline Phosphatase 115 U/L (39-117); Anion Gap 12 (12-20); Aspartate Amino Transferase 27 U/L (5-37); Bilirubin Total 0.3 mg/dL (0.0-1.0); Blood Urea Nitrogen 22 mg/dL (9-16); Calcium 10.1 mg/dL (8.4-10.2); Carbon Dioxide 26 mmol/L (22-29); Chloride 110 mmol/L (96-108); Cholesterol 257 mg/dL; Estimated Glomerular Filt Rate > 60; Glucose Random 109 mg/dL (60-115); HDL Cholesterol 47 mg/dL; LDL Cholesterol Calculated 165 mg/dl; Potassium 4.5 mmol/L (3.3-5.1); Sodium 143 mmol/L (135-145); Triglycerides 228 mg/dL
== END 2022-09-28 09:09 | disposition home or self-care (01) ==
LOC: HO.US 09:08
PROVIDERS: Visit Provider Internal Medicine
DX: R79.89 Other specified abnormal findings of blood chemistry (principal); E78.00 Pure hypercholesterolemia, unspecified; K76.9 Liver disease, unspecified
CPT/HCPCS: 36415; 76700; 80053; 80061; 83036

== ENCOUNTER 2022-11-20 10:38 | Outpatient (AMB) | payer OTHER, SELFPAY ==
[2022-11-20 10:39] VITALS: BP 138/90; PULSE 64; O2SAT 99; BMI 29.8
--- NOTE | 2022-11-20 10:39 | MHC.PC.OV ---
Vital Signs 11/20/22 10:39 11/20/22 11:07 Height 5 ft 9 in Weight 202 lb BMI 29.8 BP 138/90 H 142/80 H Blood Pressure Location Lt brachial Lt brachial Position Sitting Sitting Pulse 64 Pulse Source Pulse Oximeter Temp Source Skin Pulse Oximetry (%) 99 Oxygen Delivery Method Room Air Intake Visit Reasons: 6 months [employer] Required: No Allergies No Known Allergies Allergy (Mild, Verified 11/20/22 10:44) NKA Tobacco use date assessed: 11/20/22 Dental Screening Dental Screen Date: 11/20/22 Did you have a dental visit in the last 12 months?: No Did you have a dental problem in the last 6 months where you did not have access to dental care?: No Was dental information given to patient?: Patient has dentist HPI 6 months HPI Details 57-year-old overweight male with impaired glucose tolerance fatty liver hypercholesterolemia and recurrent major depression last seen in April 2022 patient is here for follow-up patient did have colonoscopy done May 2022 ultrasound of the abdomen done showing fatty liver as well as liver mass in the left lobe that has increased in size. patient has been referred to Gastroenterology. Patient is here for follow-up. Patient was supposed to have a schedule with Gastroenterology in September but reschedule did not going that the ultrasound left liver mass that has enlarged. Now he was scheduled for February. . Patient had me call Gastroenterology to get a sooner schedule. Did leave a message. [facility] Medical History (Updated 11/20/22 @ 10:52 by Patsy Ward MD) Alcohol abuse Colon cancer screening Hypercholesterolemia Obsessive compulsive disorder Psoriasis Recurrent major depression RUQ abdominal pain Family History Mother Renal cancer Brother Testicular cancer Paternal Grandmother Pancreatic cancer Maternal Grandmother Breast cancer Paternal Aunt Paranoid schizophrenia Social History Housing: House Alcohol intake: current Alcohol intake frequency: holidays/special occasions only Patient Tobacco Use Status: Former Tobacco user Years Smoked: quit 2013 e-Cigarette/Vaping Use: Never Used Second Hand Smoke Exposure: No service: No Current occupational status: unemployed Cognitive needs: No Hearing needs: No Vision needs: Yes Questionnaire Thrive Questionnaire Date Thrive assessed: 05/01/22 AUDIT C Alcohol Use Questionnaire (AUDIT-C) 1. How often do you have a drink containing alcohol?: Never 3. How often do you have six or more drinks on one occasion?: Never Total Score: 0 FANY-7 AMB Questionnaire FANY-7 Date FANY - 7 assessed: 05/01/22 Source: Developed by Drs. Sinan Galaviz, Manju Aggarwal, Wesley Dickens and colleagues, with an educational chavez from [employer]. Physical exam (Primary Care) Vital Signs: Last Vital Signs Pulse 64 11/20/22 10:39 BP 138/90 H 11/20/22 10:39 Pulse Ox 99 11/20/22 10:39 Oxygen Delivery Method Room Air 11/20/22 10:39 BMI result Body Mass Index 29.8 Tobacco/Smoking Status: Tobacco use Status Tobacco use date assessed 11/20/22 11/20/22 10:46 Patient Tobacco Use Status Former Tobacco user 11/20/22 10:46 e-Cigarette/Vaping Use Never Used 11/20/22 10:46 Thrive Assessment: Date of Thrive Assessment Date Thrive assessed 05/01/22 11/20/22 10:46 Const General: alert; No acute distress Eyes Conjunctivae: conjunctivae normal Resp Auscultation: clear to auscultation bilaterally Cardio Rate: regular rate Rhythm: regular rhythm GI Inspection: Yes normal to inspection Extrem General: Yes normal to inspection and No edema Assessment and Plan Assessment & Plan (1) Overweight (BMI 25.0-29.9): Code(s): E66.3 - Overweight Plan: diet and exercise (2) Impaired fasting glucose: Code(s): R73.01 - Impaired fasting glucose Plan: Decrease the amount of carbohydrate intake, pasta, bread, rice and potatoes are all sugar and that is aside from all the sweet stuff, remember that fruits are good but they are Sweet also. (3) Fatty liver: Code(s): K76.0 - Fatty (change of) liver, not elsewhere classified Plan: Low-fat diet and exercise (4) Liver lesion: Comment: January 2022Question 4 x 6 mm lesion in the peripheral lateral segment of the left lobe of the liver corresponding to ultrasound finding. This is appreciated on postcontrast sequences only. This demonstrates early arterial phase enhancement and remains enhanced with respect to the liver following blood pool signal on later images. This does not demonstrate enhancement characteristics to suggest hepatocellular carcinoma. Short-term follow-up imaging in 6 months recommended. Fatty infiltration of the liver. Code(s): K76.9 - Liver disease, unspecified Plan: patient has been referred to Gastroenterology (5) Hypercholesterolemia: Code(s): E78.00 - Pure hypercholesterolemia, unspecified Plan: Avoid fried foods, chicken skin, eggs, butter margarine, pastries and meat. Be it pork or beef they have a lot of cholesterol LDL goal of less than 130 and triglyceride of less than 150 (6) Recurrent major depression: Comment: [place] Q 2 weeks, prescriber once a month [place] Code(s): F33.9 - Major depressive disorder, recurrent, unspecified Plan: Arnie you with counseling and treatment Coding Level of Care Code Est Pt Level 4 (87894) Diagnoses Overweight (BMI 25.0-29.9) E66.3 Impaired fasting glucose R73.01 Fatty liver K76.0 Liver lesion K76.9 Hypercholesterolemia E78.00 Recurrent major depression F33.9
[2022-11-20 11:07] VITALS: BP 142/80
== END 2022-11-20 11:11 | disposition home or self-care (01) ==
PROVIDERS: Visit Provider Internal Medicine
DX: E66.3 Overweight (principal); K76.0 Fatty (change of) liver, not elsewhere classified; R73.01 Impaired fasting glucose; F33.9 Major depressive disorder, recurrent, unspecified; K76.9 Liver disease, unspecified; E78.00 Pure hypercholesterolemia, unspecified
CPT/HCPCS: 99214

== ENCOUNTER 2022-12-12 23:01 | Emergency (ER) | payer OTHER, SELFPAY ==
--- NOTE | ~2022-12-12 | XR_ITS ---
EXAMINATION: XR LUMBOSACRAL SPINE CLINICAL INFORMATION: Fall with back pain COMPARISON: None available. TECHNIQUE: Three views of the lumbosacral spine. FINDINGS: The vertebral bodies and posterior elements are unremarkable aside from some minimal spondylitic endplate changes. The disc spaces are preserved and the vertebral alignment is normal. The paraspinal soft tissues are normal. XR/XR lumbar spine 2-3V IMPRESSION: No evidence of an acute traumatic injury.
[2022-12-12 23:36] VITALS: BP 146/86; PULSE 93; RESP 18; TEMP 37.5; O2SAT 95; BMI 30.3
--- NOTE | 2022-12-13 00:37 | ED.FALL ---
HPI - Fall General Chief Complaint: Fall Stated Complaint: Fell, mid back pain Time Seen by Provider: 12/13/22 00:18 Source: patient Mode of arrival: ambulatory Limitations: no limitations History of Present Illness HPI Narrative: 57-year-old male came in for evaluation after a mechanical fall having his back complaining of back pain. Patient had the med of his back in the curbside complaining of mid back pain. No weakness, no numbness. Patient is seeing his PCP for follow-up on a liver mass and scheduled to see GI, no acute abdominal pain, no nausea, no vomiting. Related Data Home Medications Medication Instructions Recorded Confirmed ascorbate calcium (vitamin C) 500 500 mg PO DAILY 10/27/21 05/31/22 mg tablet fluoxetine 60 mg tablet 60 mg PO DAILY 10/27/21 05/31/22 magnesium 250 mg tablet 250 mg PO DAILY 10/27/21 05/31/22 multivitamin 1 tab PO DAILY 10/27/21 05/31/22 cholecalciferol (vitamin D3) 25 25 mcg PO DAILY 02/03/22 05/31/22 mcg (1,000 unit) capsule Allergies Allergy/AdvReac Type Severity Reaction Status Date / Time No Known Allergies Allergy Mild NKA Verified 11/20/22 10:44 Review of Systems Review of Systems: All other systems are reviewed and are negative Constitutional: Reports as per HPI and Reports no additional constitutional complaints Eyes: Reports as per HPI and Reports no additional eye complaints Reports system reviewed and no additional complaints, except as documented Cardiovascular: Reports as per HPI and Reports no additional cardiovascular complaints Respiratory: Reports as per HPI and Reports no additional respiratory complaints Gastrointestinal: Reports as per HPI and Reports no additional gastrointestinal complaints Genitourinary: Reports no additional female genitourinary complaints Musculoskeletal: Reports no additional musculoskeletal complaints Skin/Breast: Reports system reviewed and no additional complaints, except as docu Psychiatric: Reports no additional psychiatric complaints Endocrine: Reports no additional endocrine complaints Hematologic/Lymphatic: Reports no additional hematologic/lymphatic complaints Allergic/Immunologic: Reports no additional allergic/immunologic complaints Reports system reviewed and no additional complaints, except as documented and Reports Abnormal speech present [facility] Past Medical History Medical History Alcohol abuse Colon cancer screening Hypercholesterolemia Obsessive compulsive disorder Psoriasis Recurrent major depression RUQ abdominal pain Family History Family History Mother Renal cancer Brother Testicular cancer Paternal Grandmother Pancreatic cancer Maternal Grandmother Breast cancer Paternal Aunt Paranoid schizophrenia Social History Social History Housing: House Alcohol intake: current Alcohol intake frequency: holidays/special occasions only Patient Tobacco Use Status: Former Tobacco user Years Smoked: quit 2013 e-Cigarette/Vaping Use: Never Used Second Hand Smoke Exposure: No Advance Directives: No Advance Directives Information Provided: Yes service: No Current occupational status: unemployed Cognitive needs: No Hearing needs: No Vision needs: Yes Physical Exam Vital Signs: Vital Signs: Last Vital Signs Temp 99.5 F 12/12/22 23:36 Pulse 93 12/12/22 23:36 Resp 18 12/12/22 23:36 BP 146/86 H 12/12/22 23:36 Pulse Ox 95 12/12/22 23:36 O2 Del Method Room Air 12/12/22 23:36 BMI result Body Mass Index 30.3 Vital signs have been reviewed as appeared to be correct. Blood pressure normal. Heart rate normal. Respiration rate normal. Temperature normal. Oxygen saturation normal. Appearance: Alert. Oriented X3. No acute distress. Head: Normal external exam. Normocephalic. Atraumatic. No Núñez signs noted. No raccoon eyes noted Eyes: PERRLA. EOMI. Conjunctiva and sclera normal. Eyelids normal. ENT: TM's Normal. Pharynx normal. Uvula midline. Moist mucous membranes. No trismus noted. No drooling noted. No muffled voice noted. Neck: Normal inspection. Neck supple. FROM. No adenopathy. Thyroid Normal. No meningeal signs. No neck mass noted. CVS: Normal heart rate and rhythm. Heart sound normal. No murmurs noted. Pulses normal throughout. Respiratory: No respiratory distress. Painless inspiration. Breath sounds normal. No wheezes/rales/rhonchi noted. Chest nontender. No accessory muscle usage noted or decreased air movement noted. Abdomen: Soft and nontender. Bowel sounds normal in all 4 quadrants. No distention noted. No organomegaly noted. No visible injury noted. Back: No CVA tenderness. Full range of motion noted. Skin: Skin warm and dry. Normal skin color. Normal skin turgor. No rashes/lesions/lacerations noted. Extremities: No lower extremity edema. Extremities exhibit normal range of motion. Extremities nontender. Neuro: Oriented X 3. Cranial nerve exam: II-XII are grossly intact No motor deficit. No sensory deficit. Reflexes normal. Course Course Course Narrative: S/p a mechanical fall with mid back injury no fracture on the x-ray. No neurological deficit, awaiting for UA then patient can go home. Instructed to follow up with his PCP/GI for workup diagnosis of liver mass as per patient. Medical Decision Making Differential Diagnosis Differential Diagnoses: The differential diagnosis associated with the presentation includes (UTI, hematuria and kidney stone, compression fracture of lumbar spine, back contusion.) Admission/Observation Consideration of admission/observation: Escalation of care including admission/observation considered Independent Interpretation I performed an independent interpretation of an: Plain X-Ray (Lumbar spine x-ray: No evidence of an acute traumatic injury.) Radiology Impression Discussion of test interpretation with radiology: I have reviewed the radiologist's reading. Discharge Plan Discharge Clinical Impression: Accident due to mechanical fall without injury, Contusion of back Patient Disposition: Still a Patient Instructions: Contusion in Adults (ED) Prescriptions: No Action fluoxetine 60 mg tablet 60 mg PO DAILY multivitamin Tablet 1 tab PO DAILY ascorbate calcium (vitamin C) 500 mg tablet 500 mg PO DAILY magnesium 250 mg tablet 250 mg PO DAILY cholecalciferol (vitamin D3) 25 mcg (1,000 unit) capsule 25 mcg PO DAILY Referrals: Po,Patsy Mackey MD [Primary Care Provider] -
--- OUTSIDE RECORDS SUMMARY | 2022-12-13 00:55 | XMS_ITS ---
Author Name Sinan Mccullough Address [address] [place] [address] Organization [facility] Address [address] [place] [address] Care Team Providers Care Lower In Supervisor Name Role Phone Sinan Mccullough Unavailable [phone] PROBLEMS Type Condition ICD9-CM Code XLI22-TG Code Onset Dates Condition Status SNOMED Code Problem Fatty liver K76.0 Active 284788123 Problem Diverticulosis of large intestine without perforation or abscess without bleeding K57.30 Active 139932692 Problem Encounter for screening for malignant neoplasm of colon Z12.11 Active 591074025 Problem Liver lesion K76.9 Active [id number] ALLERGIES No Known Allergies ENCOUNTERS Encounter Location Date Diagnosis [facility] [address] [facility] [address] [place] [phone] 08 Sep, 2022 [facility] [address] [place] [phone] 13 May, 2022 [facility] [address] [place] [phone] 13 May, 2022 [facility] [address] [place] [id number] 08 May, 2022 Encounter for screening colonoscopy Z12.11 ; Colon polyps K63.5 ; Diverticulosis of large intestine without perforation or abscess without bleeding K57.30 and Other hemorrhoids K64.8 [facility] [address] [place] [phone] Mar, Fatty liver K76.0 ; Liver lesion K76.9 and Encounter for screening for malignant neoplasm of colon Z12.11 [facility] [address] [place], [place] [id number] Jan, [facility] [address] [place] [address] Jan, Blood in stool 578.1 IMMUNIZATIONS No Known Immunizations SOCIAL HISTORY Qualifiers Date Former Smoker REASON FOR REFERRAL FUNCTIONAL STATUS PLAN OF CARE Activity Details VITAL SIGNS Weight 195 lbs 2022-04-04 Weight 172 lbs 2012-01-26 Height 68.5 in 2022-04-04 Height 68.5 in 2012-01-26 BMI 29.22 kg/m2 2022-04-04 BMI 25.77 kg/m2 2012-01-26 Heart Rate 64 /min 2012-01-26 Temperature 97.3 degrees Fahrenheit Blood pressure systolic 000 mm Hg Blood pressure diastolic 00 mm Hg 2022-03 MEDICATIONS Medication Instructions Dosage Frequency Start Date End Date Du ration Status Milk Thistle Act kalani Magnesium Active FLUoxetine HCl 60mg Active Vitamin D Active Vitamin C Active Multivitamin Act kalani PROCEDURES Procedure Date Ordered Result Body Site BP SCR NOT PRFRM REC REASON NOS Apr 04, 2022 TOBACCO NON-USER Apr 04, 2022 DOC MEDS VERIFIED W/PT OR RE Apr 04, 2022 COLORECTAL CA SCREEN DOC REV Apr 04, 2022 COLONOSCOPY AND BIOPSY May 31, 2022 RESULTS Name Result Date Reference Range Pathology 2022-05-31 Complete Blood Count Auto Diff 2022-04-04 White Blood Count 7.5 4.8-10.8 Red Blood Count 4.56 4.60-5.80 Hemoglobin 13.3 14.0-18.0 Hematocrit 41.2 42.0-52.0 Mean Corpuscular Volume 90.4 80.0 -98.0 Mean Corpuscular Hemoglobin 29.2 27.0-33.0 Mean Corpuscular HGB Conc 32.3 31 .0-36.0 Red Cell Distribution Width 13.0 11.0-16.0 Platelet Count 345 160-400 Mean Platelet Volume 9.0 9.4-12. 4 Neutrophils Percent Auto 59.6 45- 73 Imm Gran Pct Auto 0.4 0.0-0.4 Lymphocytes Percent Auto 28.1 20- 40 Monocytes Percent Auto 9.0 2-11 Eosinophils Percent Auto 2.4 0-4 Basophils Percent Auto 0.5 0-2 NRBC Pct Auto 0.0 0.0-0.2 Neutrophils Absolute Auto 4.5 2. 0-8.3 Imm Gran Abs Auto 0.03 0.00-0.03 Lymphocytes Absolute Auto 2.1 1. 2-4.9 Monocytes Absolute Auto 0.7 0.1- 1.2 Eosinophils Absolute Auto 0.2 0. 0-0.4 Basophils Absolute Auto 0.0 0.0- 0.2 NRBC Abs Auto 0.000 0.0-0.012 RETIC 2022-04-04 Reticulocytes Absolute 0.058 0.026 -0.095 Immature Retic Fraction 10.3 2.3- 13.4 Retic HGB Equivalent 35.0 30.0-35 .0 Reticulocyte Percent 1.3 0.5-1.8 Comprehensive Met. Panel 2022-04-04 Sodium 141 135-145 Potassium 4.8 3.3-5.1 Chloride 105 96-108 Carbon Dioxide 27 22-29 Anion Gap 14 12-20 Blood Urea Nitrogen 17 9-16 Creatinine 0.89 0.5-1.4 Estimated Glomerular Filt Rate >60 Glucose Random 94 60-115 Calcium 9.6 8.4-10.2 Bilirubin Total 0.3 0.0-1.0 Aspartate Amino Transferase 41 5-37 Alanine Aminotransferase 54 0-4 0 Total Protein 7.3 6.5-8.0 Albumin Level 4.6 3.5-5.0 Alkaline Phosphatase 115 39-117 Liver Panel 2022-04-04 Bilirubin Total 0.3 0.0-1.0 Bilirubin Direct < 0.2 0.0-0.5 Aspartate Amino Transferase 40 5-37 Alanine Aminotransferase 54 0-4 0 Total Protein 7.3 6.5-8.0 Albumin Level 4.5 3.5-5.0 Alkaline Phosphatase 114 39-117 IRON PROFILE 2022-04-04 Iron 70 45-160 Total Iron Binding Capacity 355 228-428 Percent Iron Saturation 20 15-5 0 Unsaturated Iron Binding 285 Ferritin 2022-04-04 Ferritin 128 20-250 Lipid Panel 2022-04-04 Triglycerides 142 Cholesterol 274 LDL Cholesterol Calculated 195 HDL Cholesterol 51 Carcinoembryonic Antigen 2022-04-04 Carcinoembryonic Antigen 1.90 Vitamin B12 and Folate 2022-04-04 Vitamin B12 599 200-900 Folate 19.8 >or = 4.0 Alpha Fetoprotein 2022-04-04 Alpha Fetoprotein 3.9 <6.1 SARAVANAN Reflex Titer and Pattern 2022-04-04 Anti Nuclear Antibody Screen NEGATIVE NEGATIVE Anti Nuclear Antibody Titer TNP Anti Nuclear Antibody Pattern TNP SARAVANAN Titer 2 TNP SARAVANAN Pattern 2 TNP SARAVANAN Titer 3 TNP SARAVANAN Pattern 3 TNP Hemoglobin A1c 2022-04-04 Hemoglobin A1c % 5.4 Estimated Average Glucose 108 Alpha 1 Anti-trypsin 2022-04-04 Alpha 1 Anti-trypsin 147 83-199 Liver Fibrosis Pnl 2022-04-04 Liver Fibrosis Score 0.10 Liver Fibrosis Stage F0 Liver Fibrosis Interpretation SEE NOTE Nec Inflam Act Score 0.22 Nec Inflam Act Grade A0-A1 Nec Inflam Act Interpretation SEE NOTE MBJ-Ogdak-8-Macroglobulin 132 10 6-279 FIB-Haptoglobin 202 43-212 FIB-Apolipoprotein A1 169 94-176 FIB-Total Bilirubin 0.3 0.2-1.2 FIB-GGT 104 3-85 FIB-ALT 48 9-46 Reference ID [id number] Footnote SEE NOTE Mitochondrial Antibody 2022-04-04 Mitochondrial Antibodies NEGATIVE NEG ATIVE Mitochondrial Ab Titer TNP Smooth Muscle Antibody 2022-04-04 Smooth Muscle Antibody <20 <20 REASON FOR VISIT liver issues, Patient presents today for liver issues, r/s october 11 appt to nov, liver disease/colonscreening, MRI, screening, Patient presnts today for liver disease/colon screening, rectal bleeding Insurance Providers Health Insurance Type Health Plan Insurance Address Health Plan Insurance Phone Health Plan Insurance Name Health Plan Coverage Dates Member ID Patient Relationship to Subscriber Patient Address Patient Phone Patient Name Patient Date of Subscriber ID Subscriber Name Subscriber Date of Group No [employer] [address] [facility] [phone] [id number] [employer] soham HIGUERA SEEMA [id number] MEDICARE OF [place] [address] [facility] [address] MEDICARE OF [facility] DAVIDA SEEMA [id number] [place] [address] [facility] [address] MEDICAID OF [facility] DAVIDA STEPHENSON [id number]
[2022-12-13 02:32] LABS: Appearance Urine Clear; Color Urine Yellow; Glucose Urine UA Negative (Negative); Leukocyte Esterase Urine Negative (Negative); Nitrite Urine Negative (Negative); PH 5.5 (5.0-9.0); Specific Gravity - Urine >= 1.030 (1.005-1.025); Urine Blood Negative (Negative); Urine Ketones Trace mg/dL (Negative); Urine Protein Negative (Neg-Trace)
[2022-12-13 03:33] VITALS: BP 153/87; PULSE 85; RESP 16; TEMP 36.9; O2SAT 96
== END 2022-12-13 03:37 | disposition home or self-care (01) ==
PROVIDERS: Emergency Provider Emergency Medicine; PCP Internal Medicine
DX: S20.224A Contusion of middle back wall of thorax, initial encounter (principal); M54.50 Low back pain, unspecified; W01.0XXA Fall on same level from slipping, tripping and stumbling without subsequent striking against object, initial encounter; Y93.9 Activity, unspecified; Y92.9 Unspecified place or not applicable; Y99.9 Unspecified external cause status; Z87.891 Personal history of nicotine dependence
CPT/HCPCS: 72100; 81003; 99283

== ENCOUNTER 2023-02-06 12:42 | Outpatient (AMB) | payer OTHER, SELFPAY ==
[2023-02-06 12:45] VITALS: BP 128/76; PULSE 70; O2SAT 98; BMI 28.4
--- NOTE | 2023-02-06 12:45 | A.OFFPC_ITS ---
Vital Signs 02/06/23 12:45 Height 5 ft 9 in Weight 192 lb BMI 28.4 BP 128/76 Blood Pressure Location Lt brachial Position Sitting Pulse 70 Pulse Source Pulse Oximeter Pulse Oximetry (%) 98 Oxygen Delivery Method Room Air Intake Visit Reasons: Annual Exam Allergies No Known Allergies Allergy (Mild, Verified 02/06/23 12:46) NKA Medication List - Last Reconciled 02/06/23 by Patsy Ward MD ascorbate calcium (vitamin C) 500 mg PO DAILY cholecalciferol (vitamin D3) 25 mcg PO DAILY fluoxetine 60 mg PO DAILY magnesium 250 mg PO DAILY multivitamin 1 tab PO DAILY Tobacco use date assessed: 11/20/22 Dental Screening Dental Screen Date: 02/06/23 Did you have a dental visit in the last 12 months?: No Did you have a dental problem in the last 6 months where you did not have access to dental care?: No Was dental information given to patient?: Patient has dentist HPI Annual Exam HPI Details 57-year-old overweight male with impaire d glucose tolerance fatty liver hypercholesterolemia and recurrent major depression last seen in October 2022. Patient is here for physical exam. Colonoscopy is up-to-date May 2022. Review of the notes December 13 had a fall complaining of back pain. had covid 12/2022. [facility] Medical History Hypercholesterolemia RUQ abdominal pain Psoriasis Colon cancer screening Recurrent major depression Alcohol abuse Obsessive compulsive disorder Family History Mother Renal cancer Brother Testicular cancer Paternal Grandmother Pancreatic cancer Maternal Grandmother Breast cancer Paternal Aunt Paranoid schizophrenia Social History (Updated 02/06/23 @ 13:04 by Patsy Ward MD) Housing: House Alcohol intake: current Alcohol intake frequency: holidays/special occasions only Patient Tobacco Use Status: Former Tobacco user Years Smoked: quit 2013 e-Cigarette/Vaping Use: Never Used Second Hand Smoke Exposure: No service: No Current occupational status: unemployed Cognitive needs: No Hearing needs: No Vision needs: Yes Questionnaire PHQ-9 Over the last 2 weeks, how often have you been bothered by any of the following problems? 1. Little interest or pleasure in doing things: more than half the days 2. Feeling down, depressed, or hopeless: nearly every day 3. Trouble falling or staying asleep, or sleeping too much: nearly every day 4. Feeling tired or having little energy: nearly every day 5. Poor appetite or overeating: not at all 6. Feeling bad about yourself - or that you are a failure or have let yourself or your family down: nearly every day 7. Trouble concentrating on things, such as reading the newspaper or watching television: nearly every day 8. Moving or speaking so slowly that other people could have noticed. Or the opposite - being so fidgety or restless that you have been moving around a lot more than usual: nearly every day 9. Thoughts that you would be better off or of hurting yourself in some way: several days Total score: 21 Source: Developed by Drs. Sinan Galaviz, Manju Aggarwal, Wesley Dickens and colleagues, with an educational chavez from [employer]. Thrive Questionnaire Date Thrive assessed: 05/01/22 AUDIT C Alcohol Use Questionnaire (AUDIT-C) 1. How often do you have a drink containing alcohol?: Never 3. How often do you have six or more drinks on one occasion?: Never Total Score: 0 FANY-7 AMB Questionnaire FANY-7 Date FANY - 7 assessed: 05/01/22 Source: Developed by Drs. Sinan Galaviz, Manju Aggarwal, Wesley Dickens and colleagues, with an educational chavez from [employer]. Review of Systems Const Denies poor appetite and Denies weakness Eyes Denies no additional complaints ENT Reports Normal hearing present, Denies dizziness, Denies nasal congestion, Denies tinnitus and Denies sore throat Card Denies chest pain, Denies syncope, Denies rapid heart rate and Denies dyspnea Resp Denies cough and Denies dyspnea GI Denies change in stool character, Reports constipation, Denies diarrhea, Denies nausea and Denies vomiting Denies dysuria and Denies urinary frequency Neuro Reports Normal hearing present, Denies confusion, Denies dizziness, Denies syncope and Denies weakness Psych Denies confusion Physical exam (Primary Care) Vital Signs: Last Vital Signs Pulse 70 02/06/23 12:45 BP 128/76 02/06/23 12:45 Pulse Ox 98 02/06/23 12:45 Oxygen Delivery Method Room Air 02/06/23 12:45 BMI result Body Mass Index 28.4 Tobacco/Smoking Status: Tobacco use Status Tobacco use date assessed 11/20/22 02/06/23 12:51 Patient Tobacco Use Status Former Tobacco user 02/06/23 12:51 e-Cigarette/Vaping Use Never Used 02/06/23 12:51 PHQ-9: PHQ-9 Score PHQ-9: Total score 21 02/06/23 12:51 Thrive Assessment: Date of Thrive Assessment Date Thrive assessed 05/01/22 02/06/23 12:51 Const General: No confusion Orientation/consciousness: No confusion HENMT Other: impacted cerumen bilateral Head: Yes normocephalic Ears: external ears normal Face and sinus: Yes normal facial exam Mouth: moist mucous membranes Throat: Yes tonsils normal Eyes Conjunctivae: conjunctivae normal Pupils: Equal, round and reactive pupils present and Pupil accommodation reflex normal Direct Ophthalmoscopy: normal light reflex Neck Neck: No lymphadenopathy Thyroid: Thyroid normal Chest Chest palpation & inspection: normal inspection of the chest Resp Effort & Inspection: normal respiratory effort and no audible wheezes Auscultation: clear to auscultation bilaterally, no crackles, no wheezes and lung sounds not diminished Cardio Rate: regular rate Rhythm: regular rhythm Peripheral pulses: radial pulses present and dorsalis pedis present GI Palpation (GI): no masses Auscultation: normal bowel sounds and normoactive bowel sounds Rectal Exam - Male: Yes deferred Skin General skin exam: no rashes or lesions noted Rashes: no rashes Neuro General: No confusion Cranial nerves: Yes Equal, round and reactive pupils present and Yes Normal hearing present Cognition (Neuro): normal cognition Gait exam (Neuro): Normal gait present Motor exam (neuro): 5/5 motor strength present throughout Deep tendon reflexes (DTR's): Right brachioradialis reflex intensity grade: 2+, Left brachioradialis reflex intensity grade: 2+, Right patellar reflex intensity grade: 2+ and Left patellar reflex intensity grade: 2+ Extrem General: No edema Assessment and Plan Assessment & Plan (1) Annual physical exam: Code(s): Z00.00 - Encounter for general adult medical examination without abnormal findings (2) Overweight (BMI 25.0-29.9): Code(s): E66.3 - Overweight Plan: Diet and exercise (3) Impaired fasting glucose: Code(s): R73.01 - Impaired fasting glucose Plan: Decrease the amount of carbohydrate intake, pasta, bread, rice and potatoes are all sugar and that is aside from all the sweet stuff, remember that fruits are good but they are Sweet also. (4) Fatty liver: Code(s): K76.0 - Fatty (change of) liver, not elsewhere classified Plan: Low-fat diet and exercise (5) Hypercholesterolemia: Code(s): E78.00 - Pure hypercholesterolemia, unspecified Plan: Avoid fried foods, chicken skin, eggs, butter margarine, pastries and meat. Be it pork or beef they have a lot of cholesterol LDL goal of less than 130 and triglyceride of less than 150 (6) Recurrent major depression: Comment: [facility] Q 2 weeks, prescriber once a month Agbion Code(s): F33.9 - Major depressive disorder, recurrent, unspecified Plan: Continue with counseling and therapy (7) Impacted cerumen of both ears: Code(s): H61.23 - Impacted cerumen, bilateral Plan: call if need [facility] Orders: Orders Complete Blood Count Auto Diff 6 Months R73.01 - Impaired fasting glucose Thyroid Stimulating Hormone 6 Months R73.01 - Impaired fasting glucose Lipid Panel 6 Months E78.00 - Pure hypercholesterolemia, unspecified, R73.01 - Impaired fasting glucose Reticulocyte Count 6 Months K76.9 - Liver disease, unspecified Ferritin 6 Months K76.9 - Liver disease, unspecified Hemoglobin A1c 6 Months R73.01 - Impaired fasting glucose Comprehensive Met. Panel 6 Months R73.01 - Impaired fasting glucose Free T4 (Free Thyroxine) 6 Months R73.01 - Impaired fasting glucose Prostate Specific Antigen Scr 6 Months R73.01 - Impaired fasting glucose IRON PROFILE 6 Months K76.9 - Liver disease, unspecified Vitamin B12 and Folate 6 Months K76.9 - Liver disease, unspecified Coding Level of Care Code Est Pt Prev Care 40-64y([id number]) Diagnoses Annual physical exam Z00.00 Overweight (BMI 25.0-29.9) E66.3 Impaired fasting glucose R73.01 Fatty liver K76.0 Hypercholesterolemia E78.00 Recurrent major depression F33.9 Impacted cerumen of both ears H61.23
== END 2023-02-06 13:24 | disposition home or self-care (01) ==
PROVIDERS: Visit Provider Internal Medicine
DX: Z00.00 Encounter for general adult medical examination without abnormal findings (principal); E66.3 Overweight; F33.9 Major depressive disorder, recurrent, unspecified; R73.01 Impaired fasting glucose; K76.0 Fatty (change of) liver, not elsewhere classified; E78.00 Pure hypercholesterolemia, unspecified; H61.23 Impacted cerumen, bilateral
CPT/HCPCS: 99396

== ENCOUNTER 2023-03-28 11:53 | Outpatient (REF) | payer OTHER, SELFPAY | END 2023-03-28 11:54 | disposition home or self-care (01) | LOC: HO.LAB 11:53 | PROVIDERS: PCP Internal Medicine; Visit Provider Internal Medicine | DX: Z13.89 Encounter for screening for other disorder (principal) ==

== ENCOUNTER 2023-04-18 12:23 | Outpatient (REF) | payer OTHER, SELFPAY ==
[2023-04-18 12:40] LABS: MANUAL DIFF FLAG NO
[2023-04-18 12:46] LABS: Basophils Percent Auto 0.5 % (0-2); Eosinophils Absolute Auto 0.2 X10*3/uL (0.0-0.4); Eosinophils Percent Auto 2.7 % (0-4); Hematocrit 40.1 % (42.0-52.0); Hemoglobin 13.2 g/dl (14.0-18.0); Imm Gran Abs Auto 0.03 X10*3/uL (0.00-0.03); Imm Gran Pct Auto 0.4 % (0.0-0.4); Lymphocytes Absolute Auto 1.8 X10*3/uL (1.2-4.9); Lymphocytes Percent Auto 23.6 % (20-40); Mean Corpuscular HGB Conc 32.9 g/dl (31.0-36.0); Mean Corpuscular Hemoglobin 28.9 pg (27.0-33.0); Mean Corpuscular Volume 87.9 fL (80.0-98.0); Mean Platelet Volume 8.4 fL (9.4-12.4); Monocytes Absolute Auto 0.7 X10*3/uL (0.1-1.2); Monocytes Percent Auto 9.7 % (2-11); Neutrophils Absolute Auto 4.8 x10*3/uL (2.0-8.3); Neutrophils Percent Auto 63.1 % (45-73); Platelet Count 335 X10*3/uL (160-400); Red Blood Count 4.56 X10*6/uL (4.60-5.80); Red Cell Distribution Width 13.2 % (11.0-16.0); White Blood Count 7.5 X10*3/uL (4.8-10.8)
[2023-04-18 13:43] LABS: Alanine Aminotransferase 42 U/L (0-40); Albumin Level 4.2 g/dL (3.5-5.0); Alkaline Phosphatase 94 U/L (39-117); Aspartate Amino Transferase 30 U/L (5-37); Bilirubin Direct 0.1 mg/dL (0.0-0.5); Bilirubin Total 0.3 mg/dL (0.0-1.0); Blood Urea Nitrogen 14 mg/dL (9-16); Estimated Glomerular Filt Rate > 60; Total Protein 7.1 g/dL (6.5-8.0)
[2023-04-18 13:57] LABS: Carcinoembryonic Antigen < 1.73 ng/mL
[2023-04-18] MEDS: gadobutroL 10 ML VIAL IVPUSH (16:27)
[2023-04-20 13:28] LABS: Alpha Fetoprotein 4.3 ng/mL (<6.1)
== END 2023-04-18 12:24 | disposition home or self-care (01) ==
LOC: HO.MRI 12:23
PROVIDERS: PCP Internal Medicine; Visit Provider Internal Medicine
DX: K76.9 Liver disease, unspecified (principal); R93.2 Abnormal findings on diagnostic imaging of liver and biliary tract
CPT/HCPCS: 36415; 74183; 80076; 82105; 82378; 82565; 84520; 85025; A9585

== ENCOUNTER 2023-08-07 14:33 | Outpatient (AMB) | payer OTHER, SELFPAY ==
[2023-08-07 14:41] VITALS: BP 140/82; PULSE 89; O2SAT 97; BMI 30.6
--- NOTE | 2023-08-07 14:41 | MHC.PC.OV ---
Vital Signs 08/07/23 14:41 Height 5 ft 9 in Weight 207 lb BMI 30.6 BP 140/82 H Blood Pressure Location Lt brachial Position Sitting Pulse 89 Pulse Source Pulse Oximeter Pulse Oximetry (%) 97 Oxygen Delivery Method Room Air Intake Visit Reasons: 6 month f/u Allergies No Known Allergies Allergy (Mild, Verified 08/07/23 14:42) NKA Tobacco use date assessed: 08/07/23 Dental Screening Dental Screen Date: 08/07/23 Did you have a dental visit in the last 12 months?: No Did you have a dental problem in the last 6 months where you did not have access to dental care?: No Was dental information given to patient?: No HPI 6 month f/u HPI Details 57-year-old overweight male with a history of impaired glucose tolerance fatty liver hypercholesterolemia recurrent major depression last seen for physical in January 2023. Patient is here for follow-up. Patient is being followed up by Gastroenterology had an MRI of the liver showing moderate hepatic steatosis noted a 4 x 6 enhancing lesion compatible with hemangioma or focal nodular hyperplasia or hepatic adenoma. Advised MRI follow-up had a long discussion with the patient with regards to weight gain and the tips and tricks to try to help lower down the weight. Patient does have the depression problem and is being seen by psychiatrist and on medication but feels that this has been an issue still with his life. [facility] Medical History (Updated 08/07/23 @ 15:05 by Patsy Ward MD) Abscess, gluteal, left Hypercholesterolemia RUQ abdominal pain Psoriasis Colon cancer screening Recurrent major depression Alcohol abuse Obsessive compulsive disorder Family History (Updated 08/07/23 @ 14:43 by Lakesha Kowalski [facility]) Mother Renal cancer Brother Testicular cancer Paternal Grandmother Pancreatic cancer Maternal Grandmother Breast cancer Paternal Aunt Paranoid schizophrenia Mental health disorder Social History (Updated 02/06/23 @ 13:04 by Patsy Ward MD) Housing: House Alcohol intake: current Alcohol intake frequency: holidays/special occasions only Patient Tobacco Use Status: Former Tobacco user Tobacco use type: Cigarette Years Smoked: quit 2013 e-Cigarette/Vaping Use: Never Used Second Hand Smoke Exposure: No service: No Current occupational status: unemployed Cognitive needs: No Hearing needs: No Vision needs: Yes Questionnaire PHQ-9 Over the last 2 weeks, how often have you been bothered by any of the following problems? 1. Little interest or pleasure in doing things: more than half the days 2. Feeling down, depressed, or hopeless: nearly every day 3. Trouble falling or staying asleep, or sleeping too much: nearly every day 4. Feeling tired or having little energy: nearly every day 5. Poor appetite or overeating: not at all 6. Feeling bad about yourself - or that you are a failure or have let yourself or your family down: nearly every day 7. Trouble concentrating on things, such as reading the newspaper or watching television: nearly every day 8. Moving or speaking so slowly that other people could have noticed. Or the opposite - being so fidgety or restless that you have been moving around a lot more than usual: nearly every day 9. Thoughts that you would be better off or of hurting yourself in some way: several days Total score: 21 Depression Screening Interpretation: Positive Depression Screening Done: Yes Source: Developed by Drs. Sinan Galaviz, Manju Aggarwal, Wesley Dickens and colleagues, with an educational chavez from [employer]. Thrive Questionnaire Date Thrive assessed: 08/07/23 I am a: Patient What is your living situation today?: I have a steady place to live Within the past 12 months, did the food you bought not last and you didn't have the money to get more?: Never true Within the past 12 months, did you worry whether your food would run out before you got money to buy more?: Never true Do you have trouble paying for medicines?: No Do you have trouble getting transportation to medical appointments?: No Do you have trouble paying your heating and electricity bill?: No Do you have trouble taking care of your child, family member or friend?: No Do you have trouble with day-to-day activities such as bathing, preparing meals, shopping, managing finances, etc.?: No Are you currently unemployed and looking for a job?: No Are you interested in more education?: No Currently or been in a relationship where the following occur: no concerns reported THRIVE Score: 0 AUDIT C Alcohol Use Questionnaire (AUDIT-C) 1. How often do you have a drink containing alcohol?: Monthly or less 2. How many drinks containing alcohol do you have on a typical day when you are drinking?: 1 or 2 3. How often do you have six or more drinks on one occasion?: Never Total Score: 1 FANY-7 AMB Questionnaire FANY-7 Date FANY - 7 assessed: 08/07/23 Feeling nervous, anxious, or on edge: 1 = Several days Not being able to stop or control worryin = Not at all Worrying too much about different things: 0 = Not at all Trouble relaxin = Not at all Being so restless that it is hard to sit still: 0 = Not at all Becoming easily annoyed or irritable: 0 = Not at all Feeling afraid as if something awful might happen: 0 = Not at all Total FANY-7 score (0-4 normal; 5-9 mild; 10-14 moderate; 15-21 severe): 1 Source: Developed by Drs. Sinan Galaviz, Manju Aggarwal, Wesley Dickens and colleagues, with an educational chavez from [employer]. Physical exam (Primary Care) Vital Signs: Oxygen Delivery Method Room Air 08/07/23 14:41 Tobacco/Smoking Status: Tobacco use Status Tobacco use date assessed 11/20/22 02/06/23 12:51 Patient Tobacco Use Status Former Tobacco user 02/06/23 13:04 e-Cigarette/Vaping Use Never Used 02/06/23 13:04 Depression Screening Interpretation: Positive Thrive Assessment: Date of Thrive Assessment Date Thrive assessed 05/01/22 02/06/23 12:51 Currently or been in a relationship where the following occur: no concerns reported Const General: alert; No acute distress Eyes Conjunctivae: conjunctivae normal Resp Auscultation: clear to auscultation bilaterally Cardio Rate: regular rate Rhythm: regular rhythm GI Inspection: Yes normal to inspection Extrem General: Yes normal to inspection and No edema Assessment and Plan Assessment & Plan (1) Recurrent major depression: Comment: [facility] Q 2 weeks, prescriber once a month Agbion Code(s): F33.9 - Major depressive disorder, recurrent, unspecified Plan: Continue with present medication and counselling (2) Hypercholesterolemia: Code(s): E78.00 - Pure hypercholesterolemia, unspecified Plan: Avoid fried foods, chicken skin, eggs, butter margarine, pastries and meat. Be it pork or beef they have a lot of cholesterol LDL goal of less than 130 and triglyceride of less than 150. Blood work requested (3) Impaired fasting glucose: Code(s): R73.01 - Impaired fasting glucose Plan: Decrease the amount of carbohydrate intake, pasta, bread, rice and potatoes are all sugar and that is aside from all the sweet stuff, remember that fruits are good but they are Sweet also. (4) Fatty liver: Code(s): K76.0 - Fatty (change of) liver, not elsewhere classified Plan: Low-fat diet and exercise (5) Obesity (BMI 30-39.9): Code(s): E66.9 - Obesity, unspecified (6) Blood pressure elevated without history of HTN: Code(s): R03.0 - Elevated blood-pressure reading, without diagnosis of hypertension Plan: monitor the BP Coding Level of Care Code Est Pt Level 4 (72047) Diagnoses Recurrent major depression F33.9 Hypercholesterolemia E78.00 Impaired fasting glucose R73.01 Fatty liver K76.0 Obesity (BMI 30-39.9) E66.9 Blood pressure elevated without history of HTN R03.0
== END 2023-08-07 15:16 | disposition home or self-care (01) ==
PROVIDERS: PCP Internal Medicine; Visit Provider Internal Medicine
DX: E78.00 Pure hypercholesterolemia, unspecified (principal); R73.01 Impaired fasting glucose; F33.9 Major depressive disorder, recurrent, unspecified; K76.0 Fatty (change of) liver, not elsewhere classified; R03.0 Elevated blood-pressure reading, without diagnosis of hypertension
CPT/HCPCS: 99214

== ENCOUNTER 2023-08-07 15:27 | Outpatient (REF) | payer OTHER, SELFPAY ==
[2023-08-07 15:38] LABS: MANUAL DIFF FLAG NO
[2023-08-07 17:07] LABS: Basophils Absolute Auto 0.1 X10*3/uL (0.0-0.2); Basophils Percent Auto 0.7 % (0-2); Eosinophils Absolute Auto 0.2 X10*3/uL (0.0-0.4); Eosinophils Percent Auto 2.1 % (0-4); Hematocrit 39.4 % (42.0-52.0); Hemoglobin 13.4 g/dl (14.0-18.0); Imm Gran Abs Auto 0.02 X10*3/uL (0.00-0.03); Imm Gran Pct Auto 0.3 % (0.0-0.4); Immature Retic Fraction 7.4 % (2.3-13.4); Lymphocytes Absolute Auto 1.8 X10*3/uL (1.2-4.9); Lymphocytes Percent Auto 23.2 % (20-40); Mean Corpuscular Hemoglobin 30.2 pg (27.0-33.0); Mean Corpuscular Volume 88.9 fL (80.0-98.0); Mean Platelet Volume 9.1 fL (9.4-12.4); Monocytes Absolute Auto 0.7 X10*3/uL (0.1-1.2); Monocytes Percent Auto 9.2 % (2-11); Neutrophils Absolute Auto 4.9 x10*3/uL (2.0-8.3); Neutrophils Percent Auto 64.5 % (45-73); Platelet Count 351 X10*3/uL (160-400); Red Blood Count 4.43 X10*6/uL (4.60-5.80); Red Cell Distribution Width 12.7 % (11.0-16.0); Reticulocyte Percent 1.4 % (0.5-1.8); Reticulocytes Absolute 0.064 X10*6/uL (0.026-0.095); White Blood Count 7.5 X10*3/uL (4.8-10.8)
[2023-08-07 17:15] LABS: Estimated Average Glucose 114 mg/dL; Hemoglobin A1c % 5.6 % (<6.0)
[2023-08-07 18:08] LABS: Alanine Aminotransferase 40 U/L (0-40); Albumin Level 4.4 g/dL (3.5-5.0); Alkaline Phosphatase 88 U/L (39-117); Anion Gap 12 (12-20); Aspartate Amino Transferase 31 U/L (5-37); Bilirubin Total 0.4 mg/dL (0.0-1.0); Blood Urea Nitrogen 14 mg/dL (9-16); Calcium 9.4 mg/dL (8.4-10.2); Carbon Dioxide 26 mmol/L (22-29); Chloride 104 mmol/L (96-108); Cholesterol 287 mg/dL (<200); Estimated Glomerular Filt Rate > 60; Glucose Random 99 mg/dL (60-115); HDL Cholesterol 46 mg/dL (>40); Iron 98 mcg/dL (45-160); LDL Cholesterol Calculated 199 mg/dL (<100); Percent Iron Saturation 28 % (15-50); Potassium 4.3 mmol/L (3.3-5.1); Sodium 138 mmol/L (135-145); Total Iron Binding Capacity 349 mcg/dL (228-428); Total Protein 7.4 g/dL (6.5-8.0); Triglycerides 210 mg/dL (<150); Unsaturated Iron Binding 251 ug/dL
[2023-08-07 18:13] LABS: Ferritin 109 ng/mL (20-250); Free T4 (Free Thyroxine) 1.02 ng/dL (0.71-1.85); Thyroid Stimulating Hormone 1.14 uIU/mL (0.32-4.0)
[2023-08-07 19:29] LABS: Folate 11.5 ng/mL (> or = 4.0); Prostate Specific Antigen Scr 1.55 ng/mL (<0.05-4.0); Vitamin B12 629 pg/mL (200-900)
== END 2023-08-07 15:28 | disposition home or self-care (01) ==
LOC: HO.LAB 15:27
PROVIDERS: PCP Internal Medicine; Visit Provider Internal Medicine
DX: R73.01 Impaired fasting glucose (principal); K76.9 Liver disease, unspecified; E78.00 Pure hypercholesterolemia, unspecified; Z12.5 Encounter for screening for malignant neoplasm of prostate
CPT/HCPCS: 36415; 80053; 80061; 82607; 82728; 82746; 83036; 83540; 84153; 84439; 84443; 85025; 85045

== ENCOUNTER 2024-02-20 11:13 | Outpatient (AMB) | payer OTHER, SELFPAY ==
--- NOTE | 2024-02-20 11:31 | MHC.PC.OV ---
Vital Signs 02/20/24 11:32 Height 5 ft 9 in Weight 206 lb 6 oz BMI 30.5 BP 136/86 Blood Pressure Location Lt brachial Position Sitting Pulse 77 Pulse Source Pulse Oximeter Pulse Oximetry (%) 97 Oxygen Delivery Method Room Air Intake Visit Reasons: PE Intake Note: Patient is here today for a physical. Pt decline flu shot today. Autocad Technician Required: No Occ Therapy Asst: Not Required per policy Accompanied by: Self / Same As Patient Allergies No Known Allergies Allergy (Mild, Verified 02/20/24 11:32) NKA Medication List - Last Reconciled 02/20/24 by Patsy Ward MD ascorbate calcium (vitamin C) 500 mg PO DAILY cholecalciferol (vitamin D3) 25 mcg PO DAILY fluoxetine 60 mg PO DAILY multivitamin 1 tab PO DAILY Tobacco use date assessed: 02/20/24 Dental Screening Dental Screen Date: 08/07/23 HPI PE HPI Details 58-year-old obese male with a history of fatty liver impaired glucose tolerance hypercholesterolemia recurrent major depression last seen in July having an elevated blood pressure. Patient comes in for physical exam. Colonoscopy 2022., occ nauseA, gerd symptoms. complains of having rectal bleeding for 1 month but this has resolved, dicsussed about alarming signs PFSH Medical History (Updated 02/20/24 @ 12:09 by Patsy Ward MD) Abscess, gluteal, left Hypercholesterolemia RUQ abdominal pain Psoriasis Colon cancer screening Recurrent major depression Alcohol abuse Obsessive compulsive disorder Surgical History (Updated 02/20/24 @ 11:35 by JOSH Mccann) No pertinent past surgical history Family History Mother Renal cancer Brother Testicular cancer Paternal Grandmother Pancreatic cancer Maternal Grandmother Breast cancer Paternal Aunt Paranoid schizophrenia Mental health disorder Social History (Updated 02/20/24 @ 12:01 by Patsy Ward MD) Housing: House Alcohol intake: current Alcohol intake frequency: holidays/special occasions only Comment: birthdays 1 glassof wine 3-4 x a year Patient Tobacco Use Status: Former Tobacco user Tobacco use type: Cigarette Years Smoked: quit 2013 e-Cigarette/Vaping Use: Never Used Second Hand Smoke Exposure: No service: No Current occupational status: unemployed Cognitive needs: No Hearing needs: No Vision needs: Yes Questionnaire PHQ-9 Over the last 2 weeks, how often have you been bothered by any of the following problems? 1. Little interest or pleasure in doing things: nearly every day 2. Feeling down, depressed, or hopeless: nearly every day 3. Trouble falling or staying asleep, or sleeping too much: nearly every day 4. Feeling tired or having little energy: nearly every day 5. Poor appetite or overeating: several days 6. Feeling bad about yourself - or that you are a failure or have let yourself or your family down: several days 7. Trouble concentrating on things, such as reading the newspaper or watching television: nearly every day 8. Moving or speaking so slowly that other people could have noticed. Or the opposite - being so fidgety or restless that you have been moving around a lot more than usual: nearly every day 9. Thoughts that you would be better off or of hurting yourself in some way: more than half the days Total score: 22 Depression Screening Interpretation: Positive Depression Screening Done: Yes Source: Developed by Drs. Sinan Galaviz, Manju Aggarwal, Wesley Dickens and colleagues, with an educational chavez from [employer]. Thrive Questionnaire Date Thrive assessed: 02/20/24 I am a: Patient What is your living situation today?: I have a place to live, but I am worried about losing it in the future Within the past 12 months, did the food you bought not last and you didn't have the money to get more?: Never true Within the past 12 months, did you worry whether your food would run out before you got money to buy more?: Never true Do you have trouble paying for medicines?: No Do you have trouble getting transportation to medical appointments?: No Do you have trouble paying your heating and electricity bill?: No Do you have trouble taking care of your child, family member or friend?: Yes Do you have trouble with day-to-day activities such as bathing, preparing meals, shopping, managing finances, etc.?: Yes Are you currently unemployed and looking for a job?: I choose not to answer this question Are you interested in more education?: I choose not to answer this question Please select the resources that you would like help with: Housing/Group Home Currently or been in a relationship where the following occur: I choose not to answer THRIVE Score: 1 AUDIT C Alcohol Use Questionnaire (AUDIT-C) 1. How often do you have a drink containing alcohol?: Monthly or less 2. How many drinks containing alcohol do you have on a typical day when you are drinking?: 1 or 2 3. How often do you have six or more drinks on one occasion?: Never Total Score: 1 FANY-7 AMB Questionnaire FANY-7 Date FANY - 7 assessed: 02/20/24 Feeling nervous, anxious, or on edge: 3 = Nearly every day Not being able to stop or control worryin = Nearly every day Worrying too much about different things: 3 = Nearly every day Trouble relaxin = Nearly every day Being so restless that it is hard to sit still: 1 = Several days Becoming easily annoyed or irritable: 2 = More than half the days Feeling afraid as if something awful might happen: 3 = Nearly every day Total FANY-7 score (0-4 normal; 5-9 mild; 10-14 moderate; 15-21 severe): 18 Source: Developed by Drs. Sinan Galaviz, Manju Aggarwal, Wesley Dickens and colleagues, with an educational chavez from [employer]. Review of Systems Const Denies poor appetite and Denies weakness Eyes Denies no additional complaints ENT Reports Normal hearing present, Denies dizziness, Denies nasal congestion, Denies tinnitus and Denies sore throat Card Denies chest pain, Denies syncope, Denies rapid heart rate and Denies dyspnea Resp Denies cough and Denies dyspnea GI Denies change in stool character, Reports constipation, Denies diarrhea, Denies nausea and Denies vomiting Denies dysuria and Denies urinary frequency Neuro Reports Normal hearing present, Denies confusion, Denies dizziness, Denies syncope and Denies weakness Psych Denies confusion Physical exam (Primary Care) Vital Signs: Last Vital Signs Pulse 77 02/20/24 11:32 BP 136/86 02/20/24 11:32 Pulse Ox 97 02/20/24 11:32 Oxygen Delivery Method Room Air 02/20/24 11:32 BMI result Body Mass Index 30.5 Tobacco/Smoking Status: Tobacco use Status Tobacco use date assessed 02/20/24 02/20/24 11:36 Patient Tobacco Use Status Former Tobacco user 02/20/24 12:01 Tobacco use type Cigarette 02/20/24 12:01 e-Cigarette/Vaping Use Never Used 02/20/24 12:01 PHQ-9: PHQ-9 Score PHQ-9: Total score 22 02/20/24 11:57 Depression Screening Interpretation: Positive Thrive Assessment: Date of Thrive Assessment Date Thrive assessed 02/20/24 02/20/24 11:36 Currently or been in a relationship where the following occur: I choose not to answer Const General: No confusion Orientation/consciousness: No confusion HENMT Head: Yes normocephalic Ears: external ears normal and TM's normal bilaterally Face and sinus: Yes normal facial exam Mouth: moist mucous membranes Throat: Yes tonsils normal Eyes Conjunctivae: conjunctivae normal Pupils: Equal, round and reactive pupils present and Pupil accommodation reflex normal Direct Ophthalmoscopy: normal light reflex Neck Neck: No lymphadenopathy Thyroid: Thyroid normal Chest Chest palpation & inspection: normal inspection of the chest Resp Effort & Inspection: normal respiratory effort and no audible wheezes Auscultation: clear to auscultation bilaterally, no crackles, no wheezes and lung sounds not diminished Cardio Rate: regular rate Rhythm: regular rhythm Peripheral pulses: radial pulses present and dorsalis pedis present GI Other: guaiac negative, with n prostate Palpation (GI): no masses Auscultation: normal bowel sounds and normoactive bowel sounds Male General Exam: Yes normal external exam Back/Spine/Pelvis Other: scaly rash on the R lower leg 2-3 cm in diameter Skin General skin exam: no rashes or lesions noted Rashes: no rashes Neuro General: No confusion Cranial nerves: Yes Equal, round and reactive pupils present and Yes Normal hearing present Cognition (Neuro): normal cognition Gait exam (Neuro): Normal gait present Motor exam (neuro): 5/5 motor strength present throughout Deep tendon reflexes (DTR's): Right brachioradialis reflex intensity grade: 2+, Left brachioradialis reflex intensity grade: 2+, Right patellar reflex intensity grade: 2+ and Left patellar reflex intensity grade: 2+ Extrem General: No edema Coding Level of Care Code Est Pt Prev Care 40-64y(87115) Diagnoses Annual physical exam Z00.00 Impaired fasting glucose R73.01 Hypercholesterolemia E78.00 Moderate episode of recurrent major depressive disorder F33.1 Active/Remission status: currently active Major depression episode severity: moderate Obesity (BMI 30-39.9) E66.9 Gastroesophageal reflux disease without esophagitis K21.9 Esophagitis presence: without esophagitis Assessment & Plan Assessment & Plan (1) Annual physical exam: Code(s): Z00.00 - Encounter for general adult medical examination without abnormal findings Category: Medical Plan: Patient is advised to eat healthy, keep well hydrated, keep active and have adequate sleep. (2) Impaired fasting glucose: Code(s): R73.01 - Impaired fasting glucose Category: Medical Plan: Decrease the amount of carbohydrate intake, pasta, bread, rice and potatoes are all sugar and that is aside from all the sweet stuff, remember that fruits are good but they are Sweet also. (3) Hypercholesterolemia: Code(s): E78.00 - Pure hypercholesterolemia, unspecified Category: Medical Plan: Avoid fried foods, chicken skin, eggs, butter margarine, pastries and meat. Be it pork or beef they have a lot of cholesterol LDL goal of less than 130 and triglyceride of less than 150 decline meds (4) Recurrent major depression: Comment: [facility] Q 2 weeks, prescriber once a month [place] Code(s): F33.9 - Major depressive disorder, recurrent, unspecified Category: Medical Qualifiers: Active/Remission status: currently active Major depression episode severity: moderate Qualified Code(s): F33.1 - Major depressive disorder, recurrent, moderate Plan: Continue with counseling and therapy (5) Obesity (BMI 30-39.9): Code(s): E66.9 - Obesity, unspecified Category: Medical Plan: Diet and exercise (6) GERD (gastroesophageal reflux disease): Code(s): K21.9 - Gastro-esophageal reflux disease without esophagitis Category: Medical Qualifiers: Esophagitis presence: without esophagitis Qualified Code(s): K21.9 - Gastro-esophageal reflux disease without esophagitis Plan: Avoid the foods that causes that usually spicy foods, tomato products, juices, coffee, soda and foods that your sensitive to. After eating do not lie down, allow 3-4 hours before in lie down. And keep the head of bed above 30 degrees to avoid the acid from going up. Orders: Orders Comprehensive Met. Panel Today E78.00 - Pure hypercholesterolemia, unspecified Complete Blood Count Auto Diff Today E78.00 - Pure hypercholesterolemia, unspecified Free T4 (Free Thyroxine) Today E78.00 - Pure hypercholesterolemia, unspecified Lipid Panel Today E78.00 - Pure hypercholesterolemia, unspecified Vitamin B12 and Folate Today E78.00 - Pure hypercholesterolemia, unspecified IRON PROFILE Today E78.00 - Pure hypercholesterolemia, unspecified Reticulocyte Count Today E78.00 - Pure hypercholesterolemia, unspecified Lipid Panel Today E78.00 - Pure hypercholesterolemia, unspecified Comprehensive Met. Panel Today E78.00 - Pure hypercholesterolemia, unspecified Thyroid Stimulating Hormone Today E78.00 - Pure hypercholesterolemia, unspecified Prostate Specific Antigen Scr Today E78.00 - Pure hypercholesterolemia, unspecified Hemoglobin A1c Today E78.00 - Pure hypercholesterolemia, unspecified Ferritin Today E78.00 - Pure hypercholesterolemia, unspecified
[2024-02-20 11:32] VITALS: BP 136/86; PULSE 77; O2SAT 97; BMI 30.5
== END 2024-02-20 12:25 | disposition home or self-care (01) ==
LOC: HO.HMCH 11:14
PROVIDERS: PCP Internal Medicine; Visit Provider Internal Medicine
DX: Z00.00 Encounter for general adult medical examination without abnormal findings (principal); E66.9 Obesity, unspecified; Z68.30 Body mass index [BMI] 30.0-30.9, adult; F33.1 Major depressive disorder, recurrent, moderate; R73.01 Impaired fasting glucose; E78.00 Pure hypercholesterolemia, unspecified; K21.9 Gastro-esophageal reflux disease without esophagitis

== ENCOUNTER 2024-02-20 11:13 | Outpatient (REF) | payer OTHER, SELFPAY ==
[2024-02-20 12:53] LABS: MANUAL DIFF FLAG NO
[2024-02-20 13:06] LABS: Basophils Absolute Auto 0.1 X10*3/uL (0.0-0.2); Basophils Percent Auto 0.6 % (0-2); Eosinophils Absolute Auto 0.2 X10*3/uL (0.0-0.4); Eosinophils Percent Auto 2.4 % (0-4); Hematocrit 39.3 % (42.0-52.0); Hemoglobin 13.3 g/dl (14.0-18.0); Imm Gran Abs Auto 0.03 X10*3/uL (0.00-0.03); Imm Gran Pct Auto 0.4 % (0.0-0.4); Immature Retic Fraction 9.5 % (2.3-13.4); Lymphocytes Absolute Auto 2.4 X10*3/uL (1.2-4.9); Lymphocytes Percent Auto 30.9 % (20-40); Mean Corpuscular HGB Conc 33.8 g/dl (31.0-36.0); Mean Corpuscular Hemoglobin 29.7 pg (27.0-33.0); Mean Corpuscular Volume 87.7 fL (80.0-98.0); Mean Platelet Volume 8.6 fL (9.4-12.4); Monocytes Absolute Auto 0.7 X10*3/uL (0.1-1.2); Monocytes Percent Auto 9.1 % (2-11); Neutrophils Absolute Auto 4.4 x10*3/uL (2.0-8.3); Neutrophils Percent Auto 56.6 % (45-73); Platelet Count 343 X10*3/uL (160-400); Red Blood Count 4.48 X10*6/uL (4.60-5.80); Red Cell Distribution Width 12.7 % (11.0-16.0); Retic HGB Equivalent 33.9 pg (30.0-35.0); Reticulocyte Percent 1.4 % (0.5-1.8); Reticulocytes Absolute 0.063 X10*6/uL (0.026-0.095); White Blood Count 7.8 X10*3/uL (4.8-10.8)
[2024-02-20 13:12] LABS: Estimated Average Glucose 111 mg/dL; Hemoglobin A1C 127.2401 umol/L; Hemoglobin A1c % 5.5 % (<6.0); Total Hemoglobin (HGBA1C) 3466.7182 umol/L
[2024-02-20 14:04] LABS: Alanine Aminotransferase 51 U/L (0-40); Albumin Level 4.5 g/dL (3.5-5.0); Alkaline Phosphatase 87 U/L (39-117); Anion Gap 15 (12-20); Aspartate Amino Transferase 38 U/L (5-37); Bilirubin Total 0.5 mg/dL (0.0-1.0); Blood Urea Nitrogen 16 mg/dL (9-16); Calcium 9.4 mg/dL (8.4-10.2); Carbon Dioxide 20 mmol/L (22-29); Chloride 107 mmol/L (96-108); Cholesterol 299 mg/dL (<200); Estimated Glomerular Filt Rate > 60; Glucose Random 98 mg/dL (60-115); HDL Cholesterol 54 mg/dL (>40); Iron 87 mcg/dL (45-160); LDL Cholesterol Calculated 201 mg/dL (<100); Percent Iron Saturation 24 % (15-50); Sodium 138 mmol/L (135-145); Total Iron Binding Capacity 357 mcg/dL (228-428); Total Protein 7.8 g/dL (6.5-8.0); Triglycerides 221 mg/dL (<150); Unsaturated Iron Binding 270 ug/dL
[2024-02-20 14:06] LABS: Ferritin 99 ng/mL (20-250); Thyroid Stimulating Hormone 2.78 uIU/mL (0.32-4.0)
[2024-02-20 14:14] LABS: Folate 15.3 ng/mL (> or = 4.0); Prostate Specific Antigen Scr 1.64 ng/mL (<0.05-4.0); Vitamin B12 598 pg/mL (200-900)
== END 2024-02-20 11:14 | disposition home or self-care (01) ==
LOC: HO.LAB 11:13
PROVIDERS: PCP Internal Medicine; Visit Provider Internal Medicine
DX: Z00.00 Encounter for general adult medical examination without abnormal findings (principal); Z12.5 Encounter for screening for malignant neoplasm of prostate; E78.00 Pure hypercholesterolemia, unspecified; R73.01 Impaired fasting glucose; F33.1 Major depressive disorder, recurrent, moderate; E66.9 Obesity, unspecified; K21.9 Gastro-esophageal reflux disease without esophagitis
CPT/HCPCS: 36415; 80053; 80061; 82607; 82728; 82746; 83036; 83540; 84153; 84439; 84443; 85025; 85045; 96127; 99396

== ENCOUNTER 2024-08-20 09:36 | Outpatient (AMB) | payer OTHER, SELFPAY ==
[2024-08-20 09:40] VITALS: BP 134/78; PULSE 84; TEMP 36.2; O2SAT 95; BMI 30.6
--- NOTE | 2024-08-20 09:40 | A.OFFPC_ITS ---
Vital Signs 08/20/24 09:40 Height 5 ft 9 in Weight 207 lb 6 oz BMI 30.6 BP 134/78 Blood Pressure Location Lt brachial Position Sitting Pulse 84 Pulse Source Pulse Oximeter Temp 97.1 F Temp Source Temporal Artery Scan Pulse Oximetry (%) 95 Intake Visit Reasons: 6 Month F/U Dispensary Clerk Required: No Accompanied by: Self / Same As Patient Allergies No Known Allergies Allergy (Mild, Verified 08/20/24 09:45) NKA Tobacco use date assessed: 08/20/24 Dental Screening Dental Screen Date: 08/20/24 Did you have a dental visit in the last 12 months?: Yes Did you have a dental problem in the last 6 months where you did not have access to dental care?: No Was dental information given to patient?: Patient has dentist [facility] Medical History (Updated 02/20/24 @ 12:09 by Patsy Ward MD) Abscess, gluteal, left Hypercholesterolemia RUQ abdominal pain Psoriasis Colon cancer screening Recurrent major depression Alcohol abuse Obsessive compulsive disorder Surgical History No pertinent past surgical history Family History Mother Renal cancer Brother Testicular cancer Paternal Grandmother Pancreatic cancer Maternal Grandmother Breast cancer Paternal Aunt Paranoid schizophrenia Mental health disorder Social History Housing: House Alcohol intake: current Alcohol intake frequency: holidays/special occasions only Comment: birthdays 1 glassof wine 3-4 x a year Patient Tobacco Use Status: Former Tobacco user Tobacco use type: Cigarette Years Smoked: quit 2013 e-Cigarette/Vaping Use: Never Used Second Hand Smoke Exposure: No service: No Current occupational status: unemployed Cognitive needs: No Hearing needs: No Vision needs: Yes Questionnaire PHQ-9 Over the last 2 weeks, how often have you been bothered by any of the following problems? 1. Little interest or pleasure in doing things: nearly every day 2. Feeling down, depressed, or hopeless: nearly every day 3. Trouble falling or staying asleep, or sleeping too much: nearly every day 4. Feeling tired or having little energy: nearly every day 5. Poor appetite or overeating: several days 6. Feeling bad about yourself - or that you are a failure or have let yourself or your family down: several days 7. Trouble concentrating on things, such as reading the newspaper or watching television: nearly every day 8. Moving or speaking so slowly that other people could have noticed. Or the opposite - being so fidgety or restless that you have been moving around a lot more than usual: more than half the days 9. Thoughts that you would be better off or of hurting yourself in some way: several days Total score: 20 61723 - PHQ-9 Billing: Yes Source: Developed by Drs. Sinan Galaviz, Manju Aggarwal, Wesley Dickens and colleagues, with an educational chavez from [employer]. Thrive Questionnaire Date Thrive assessed: 08/20/24 I am a: Patient What is your living situation today?: I have a place to live, but I am worried about losing it in the future Within the past 12 months, did the food you bought not last and you didn't have the money to get more?: Never true Within the past 12 months, did you worry whether your food would run out before you got money to buy more?: Never true Do you have trouble paying for medicines?: No Do you have trouble getting transportation to medical appointments?: No Do you have trouble paying your heating and electricity bill?: No Do you have trouble taking care of your child, family member or friend?: Yes Do you have trouble with day-to-day activities such as bathing, preparing meals, shopping, managing finances, etc.?: Yes Are you currently unemployed and looking for a job?: I choose not to answer this question Are you interested in more education?: I choose not to answer this question Please select the resources that you would like help with: None Currently or been in a relationship where the following occur: I choose not to answer THRIVE Score: 1 AUDIT C Alcohol Use Questionnaire (AUDIT-C) 1. How often do you have a drink containing alcohol?: Never 3. How often do you have six or more drinks on one occasion?: Never Total Score: 0 FANY-7 AMB Questionnaire FANY-7 Date FANY - 7 assessed: 08/20/24 Feeling nervous, anxious, or on edge: 3 = Nearly every day Not being able to stop or control worryin = Nearly every day Worrying too much about different things: 3 = Nearly every day Trouble relaxin = Nearly every day Being so restless that it is hard to sit still: 1 = Several days Becoming easily annoyed or irritable: 3 = Nearly every day Feeling afraid as if something awful might happen: 3 = Nearly every day Total FANY-7 score (0-4 normal; 5-9 mild; 10-14 moderate; 15-21 severe): 19 Source: Developed by Drs. Sinan Galaviz, Manju Aggarwal, Wesley Dickens and colleagues, with an educational chavez from [employer]. FANY-7 Assessment Billing FANY-7 Assessment Tool: FANY-7 Assessment 57508 Physical exam (Primary Care) Vital Signs: Last Vital Signs Temp 97.1 F 08/20/24 09:40 Pulse 84 08/20/24 09:40 BP 134/78 08/20/24 09:40 Pulse Ox 95 08/20/24 09:40 BMI result Body Mass Index 30.6 Tobacco/Smoking Status: Tobacco use Status Tobacco use date assessed 08/20/24 08/20/24 09:46 Patient Tobacco Use Status Former Tobacco user 08/20/24 09:45 Tobacco use type Cigarette 08/20/24 09:45 e-Cigarette/Vaping Use Never Used 08/20/24 09:45 PHQ-9: PHQ-9 Score PHQ-9: Total score 20 08/20/24 09:47 Thrive Assessment: Date of Thrive Assessment Date Thrive assessed 08/20/24 08/20/24 09:45 Currently or been in a relationship where the following occur: I choose not to answer Const General: alert; No acute distress Eyes Conjunctivae: conjunctivae normal Resp Auscultation: clear to auscultation bilaterally Cardio Rate: regular rate Rhythm: regular rhythm GI Inspection: Yes normal to inspection Extrem General: Yes normal to inspection and No edema Coding Level of Care Code Est Pt Level 4 (38610) Complex EM visit Add On G2211 Diagnoses Obesity (BMI 30-39.9) E66.9 Gastroesophageal reflux disease without esophagitis K21.9 Esophagitis presence: without esophagitis Hypercholesterolemia E78.00 Impaired fasting glucose R73.01 Fatty liver K76.0 Moderate episode of recurrent major depressive disorder F33.1 Active/Remission status: currently active Major depression episode severity: moderate Additional Codes FANY-7 Assessment Billing - FANY-7 Assessment Tool: FANY-7 Assessment 59167 ([id number]) PHQ-9 - 69257 - PHQ-9 Billing: Yes ([id number]) Assessment & Plan Assessment & Plan (1) Obesity (BMI 30-39.9): Code(s): E66.9 - Obesity, unspecified Category: Medical Plan: Diet and exercise (2) GERD (gastroesophageal reflux disease): Code(s): K21.9 - Gastro-esophageal reflux disease without esophagitis Category: Medical Qualifiers: Esophagitis presence: without esophagitis Qualified Code(s): K21.9 - Gastro-esophageal reflux disease without esophagitis Plan: Avoid the foods that causes that usually spicy foods, tomato products, juices, coffee, soda and foods that your sensitive to. After eating do not lie down, allow 3-4 hours before in lie down. And keep the head of bed above 30 degrees to avoid the acid from going up. (3) Hypercholesterolemia: Code(s): E78.00 - Pure hypercholesterolemia, unspecified Category: Medical Plan: Avoid fried foods, chicken skin, eggs, butter margarine, pastries and meat. Be it pork or beef they have a lot of cholesterol LDL goal of less than 130 and triglyceride of less than 150 decline to be on any med (4) Impaired fasting glucose: Code(s): R73.01 - Impaired fasting glucose Category: Medical Plan: Decrease the amount of carbohydrate intake, pasta, bread, rice and potatoes are all sugar and that is aside from all the sweet stuff, remember that fruits are good but they are Sweet also. Blood work is good (5) Fatty liver: Code(s): K76.0 - Fatty (change of) liver, not elsewhere classified Category: Medical Plan: Low-fat diet and exercise (6) Recurrent major depression: Comment: [facility] Q 2 weeks, prescriber once a month [facility] Code(s): F33.9 - Major depressive disorder, recurrent, unspecified Category: Medical Qualifiers: Active/Remission status: currently active Major depression episode severity: moderate Qualified Code(s): F33.1 - Major depressive disorder, recurrent, moderate Plan: Continue counseling and therapy. On fluoxetine 60 mg once a day Plan History of Present Illness The patient is a 58-year-old male presenting with a follow-up for the management of chronic health issues, including significant hypercholesterolemia and depressive disorder. The patient continues to manage high cholesterol through dietary and lifestyle interventions, reporting persistent elevated levels ? including a total cholesterol of 299 mg/dL, triglycerides at 221 mg/dL, and LDL at 201 mg/dL ? but declines pharmacotherapy due to concerns over side effects and dependence. He has experienced chronic hepatic steatosis, consistent with recent lab results, and maintains impaired glucose tolerance with recent blood sugar levels reported as normal. He actively manages major depressive disorder and obsessive-compulsive disorder with fluoxetine 60 mg daily and regular therapy, achieving a degree of stability. Gastroesophageal reflux disease is likely influenced by dietary habits, notably consumption of spicy foods, and is managed through diet without current pharmacological treatment. Psoriasis is noted but currently with decreased symptoms. The patient acknowledges lifestyle changes, including reducing excess dairy intake, as potentially beneficial. Health Maintenance - Cholesterol management through diet and exercise, aiming for LDL goal of less than 130 mg/dL and triglycerides less than 150 mg/dL - Diabetes management: blood sugar controlled with a normal hemoglobin A1c - Regular therapeutic counseling for mental health, with fluoxetine regimen at 60 mg/day - Reflux management through dietary adjustments - Routine screening: PSA, vitamin B12, folic acid, thyroid levels all within normal limits Social History - Alcohol use disorder with a history of consumption - Dietary habits involve significant dairy intake and preference for spicy foods - Engages actively in regular therapy sessions - Expressed concern and management preference against medication dependency for chronic conditions - Reports strong familial support, recently experienced familial bereavement Review of Systems - Gastrointestinal: Reports occasional heartburn and reflux symptoms possibly due to spicy food consumption; bowel movements are regular - Dermatological: Historical psoriasis with recent decrease in itching - Psychological: Reports stable depressive and obsessive-compulsive symptoms with current medication - General: Denies visual disturbances, soft tissue swelling, and significant systemic symptoms Physical Exam Results - Labs: Mild chronic anemia, normal platelet count, normal white blood cell count, normal electrolytes and kidney function - Blood sugar normal at 98 mg/dL, normal hemoglobin A1c - Cholesterol notably elevated; total cholesterol 299 mg/dL, triglycerides 221 mg/dL, LDL 201 mg/dL - Liver function tests elevated but consistent with chronic hepatic steatosis Plan The patient's hypercholesterolemia will continue to be managed with dietary and exercise modification, targeting LDL and triglyceride goals. Mental health treatment with fluoxetine will continue, and therapy sessions will offer additional support. Liver function will be monitored to assess hepatic steatosis. The chosen management approaches prioritize the patient's preference to avoid medication dependency, while accommodating his dietary habits and lifestyle. Re-evaluation of lab results is planned for future visits, contingent on lifestyle adherence and reporting of symptoms. Patient was informed and verbally consented to the use of an ambient scribe for clinic note documentation during this visit. Discussion Notes I discussed the management of hypercholesterolemia with the patient, emphasizing the role of diet, exercise, and lifestyle changes in lowering cholesterol levels. We talked about setting an LDL target of less than 130 mg/dL and triglycerides of less than 150 mg/dL. The patient is apprehensive about commencing statin therapy due to potential side effects and reliance concerns, so we agreed to continue with non-pharmacologic measures for now. Regarding major depressive disorder and obsessive-compulsive disorder management, we agreed on maintaining the current fluoxetine dose of 60 mg and continuing regular therapy sessions, advocating for consistent mental health monitoring. Given his hepatic steatosis and the importance of diet control, we addressed the benefits of appropriate dietary habits to manage reflux symptoms, suggesting avoiding late-night meals and reducing spicy foods as a precautionary measure. We acknowledged the patient's recent bereavement, which underscores the importance of maintaining a robust support network. Follow-up is set for the next routine check-up, where further assessment of all discussed conditions will take place. Patient Instructions - Continue following a low-fat diet and regular exercise to manage cholesterol levels. - Take fluoxetine 60 mg once daily as prescribed. - Attend therapy sessions regularly for mental health support. - Monitor and reduce intake of spicy and fatty foods to manage reflux symptoms. - Hold off on immediate cholesterol medication but consider future re-evaluation based on progress. - Report any new or worsening symptoms and schedule appointments as needed. Orders: Orders Complete Blood Count Auto Diff 6 Months R73.01 - Impaired fasting glucose Free T4 (Free Thyroxine) 6 Months R73.01 - Impaired fasting glucose Vitamin B12 and Folate 6 Months R73.01 - Impaired fasting glucose Thyroid Stimulating Hormone 6 Months R73.01 - Impaired fasting glucose Comprehensive Met. Panel 6 Months R73.01 - Impaired fasting glucose Lipid Panel 6 Months E78.00 - Pure hypercholesterolemia, unspecified, R73.01 - Impaired fasting glucose Ferritin 6 Months R73.01 - Impaired fasting glucose Reticulocyte Count 6 Months R73.01 - Impaired fasting glucose Prostate Specific Antigen Scr 6 Months R73.01 - Impaired fasting glucose
--- OUTSIDE RECORDS SUMMARY | 2024-08-20 10:23 | XMS_ITS | Encounter Summary ---
Author Organization [employer] Address [address] [place] [address] [address] [place] [address] Care Team Providers Care Capsule Filler Name Role Phone Unavailable Primary Care Provider Unavailabl e Encounter Details Date Type Department Care Team (Latest Contact Info) Description 08/18/2020 Abstract [facility] CONVERSIONS Dental, Provider, DDS Social History Tobacco Use Types Packs/Day Years Used Date Smoking Tobacco: Never Assessed Sex and Gender Information Value Date Recorded Sex Assigned at Male 02/20/2022 10:18 AM EDT Legal Sex Male 10:18 AM EDT Gender Identity Male 02/20/2022 10:18 AM EDT Sexual Orientation Don't know 02/20/2022 10 :18 AM EDT documented as of this encounter Plan of Treatment Not on file documented as of this encounter Visit Diagnoses Not on filedocumented in this encounter
--- OUTSIDE RECORDS SUMMARY | 2024-08-20 10:23 | XMS_ITS | Clinical Summary ---
Author Organization [employer] Address [address] [place] [address] [address] [place] [address] Care Team Providers Care Automobile Or Truck Rental Dispatcher Name Role Phone Unavailable Primary Care Provider Unavailabl e Social History Tobacco Use Types Packs/Day Years Used Date Smoking Tobacco: Never Assessed Sex and Gender Information Value Date Recorded Sex Assigned at Male 02/20/2022 10:18 AM EDT Legal Sex Male 10:18 AM EDT Gender Identity Male 02/20/2022 10:18 AM EDT Sexual Orientation Don't know 02/20/2022 10 :18 AM EDT Plan of Treatment Health Maintenance Due Date Last Done Comments CT Colonography 1963 Colonoscopy 1963 Colorectal Cancer Screening 1963 Depression Screening 1963 FIT DNA/Cologuard 1963 FIT 1963 FOBT 1963 Lipid Panel 1963 Sigmoidoscopy 1963 Alcohol/Substance Use Screening 1975 Tobacco Screening 1975 DTaP/Tdap/Td Vaccines (1 - Tdap) 11/10/1982 Pneumococcal Vaccine: 50+ Ye ars (1 of 1 - PCV) 11/10/2013 Zoster Vaccines (1 of 2) 11/10/2013 COVID-19 Vaccine ( - 2023-2 5 season) 2023 Influenza Vaccine (#1) 2023 RSV Patients and Pa tients Aged 60 years or older (1 - 1-dose 75+ series) 11/10/2038 HIB Vaccines Aged Out No longer eligi ble based on patient's age to complete this topic HPV Vaccines Aged Out No longer eligi ble based on patient's age to complete this topic Hepatitis A Vaccines Aged Out No long er eligible based on patient's age to complete this topic Hepatitis B Vaccines Aged Out No long er eligible based on patient's age to complete this topic IPV Vaccines Aged Out No longer eligi ble based on patient's age to complete this topic Meningococcal Vaccine Aged Out No stefanie shorty eligible based on patient's age to complete this topic Pneumococcal Vaccine: Pediat rics (0 to 5 Years) and At-Risk Patients (6 to 49) Years) Aged Out No longer eligible b ased on patient's age to complete this topic RSV under 20 months Aged Out No longe r eligible based on patient's age to complete this topic Rotavirus Vaccines Aged Out No longer eligible based on patient's age to complete this topic
--- OUTSIDE RECORDS SUMMARY | 2024-08-20 10:24 | XMS_ITS | Encounter Summary ---
Author Organization [employer] Address [address] [place] [address] [address] [place] [address] Care Team Providers Care Advanced Nursing Professor Name Role Phone Unavailable Primary Care Provider Unavailabl e Encounter Details Date Type Department Care Team (Latest Contact Info) Description 12/03/2018 Abstract [facility] CONVERSIONS Dental, Provider, DDS Social History Tobacco [...]
== END 2024-08-20 10:02 | disposition home or self-care (01) ==
LOC: HO.HMCH 09:37
PROVIDERS: PCP Internal Medicine; Visit Provider Internal Medicine
DX: K21.9 Gastro-esophageal reflux disease without esophagitis (principal); F33.1 Major depressive disorder, recurrent, moderate; E66.9 Obesity, unspecified; Z68.30 Body mass index [BMI] 30.0-30.9, adult; E78.00 Pure hypercholesterolemia, unspecified; R73.01 Impaired fasting glucose; K76.0 Fatty (change of) liver, not elsewhere classified

== ENCOUNTER → 2024-08-20 09:36 | Outpatient (BNVA) | payer OTHER, SELFPAY | PROVIDERS: PCP Internal Medicine; Visit Provider Internal Medicine | DX: E66.9 Obesity, unspecified (principal); K21.9 Gastro-esophageal reflux disease without esophagitis; E78.00 Pure hypercholesterolemia, unspecified; R73.01 Impaired fasting glucose; K76.0 Fatty (change of) liver, not elsewhere classified; F33.1 Major depressive disorder, recurrent, moderate; Z68.30 Body mass index [BMI] 30.0-30.9, adult | CPT/HCPCS: 96127; 99212 ==